=== PATIENT | female | born 1940 | race Caucasian/White ===

== ENCOUNTER 2017-01-27 02:08 | Emergency (ER) | payer OTHER ==
[~2017-01-27] VITALS: Ht 149.9 cm; Wt 87.9 kg
[~2017-01-27 02:08] MED LIST: ADVIN25/60 INH; ALBUAER2 INH; AMLO10TA2 PO; ATV/1 PO; BENZ100C84 PO; ESTR1CRE PV; FLNIN/ NAE; IPRASOL4 INH; LATA0.5S OPB; LEVO25TA5 PO; LISI40TA PO; PRLSR20 PO; TPRSR/25 PO; ZLF/100 PO
[2017-01-27 02:17] VITALS: TEMP 36.6; Ht 149.9 cm; Wt 87.9 kg
--- NOTE | 2017-01-27 02:21 | EMERGENCY ROOM VISIT NOTE ---
History Report prepared by Jeannineibkimberly: Monroe Chaudhary Under the Supervision of: Dr. Julio Cesar Reina D.O. First contact with patient: 02:08 Chief Complaint: SYNCOPE Stated Complaint: DIZZINESS/NEAR SYNCOPAL History of Present Illness The patient is a 76 year old female who presents to the Emergency Room via EMS with complaints of high blood pressure occurring tonight. She was doing a coloring and when she got up she felt lightheaded. She checked her blood pressure and it was 170/104. She states that she has not been feeling well for the past few days but has not been checking her blood pressure excessively. She did not check her blood pressure in the past few days. She currently complains of a mild headache but otherwise denies any complaints. She denies any issues with speech, chest pain, or any other complaints. She has chronic shortness of breath due to asthma but denies any changes. Source of History: patient Onset: tonight Position: other (global) Symptom Intensity: 170/104 Quality: other (high blood pressure) Associated Symptoms: + SOB (chronic), + headache, No chest pain Review of Systems See HPI for pertinent positives and negatives. A total of ten systems were reviewed and were otherwise negative. Past Medical & Surgical Medical Problems: (1) Anxiety (2) Asthma (3) Calculus of kidney (4) Depression (5) Glaucoma (6) Hypertension (7) Hypothyroidism (8) Pancreatic mass (9) Urinary retention Surgical Problems: (1) Status post appendectomy (2) Status post cataract extraction (3) Status post partial mastectomy Family History Cancer FATHER MOTHER Diabetes mellitus Hypertension Social History Smoking Status: Never Smoker Alcohol Use: none Marital Status: Housing Status: lives alone Occupation Status: retired Current/Historical Medications Scheduled Amlodipine Besylate (Norvasc), 10 MG PO DAILY Atorvastatin (Lipitor), 20 MG PO DAILY Fluticasone Prop/Salmeterol (Advair Diskus 250/50 60 Dose), 1 PUFF INH BID Latanoprost (Xalatan 0.005% Oph Gabby), 1 DROP OPB HS Levothyroxine Sodium (Levothyroxine Sodium), 25 MCG PO DAILY Lisinopril (Prinivil), 40 MG PO DAILY Metoprolol Succinate (Metoprolol Succinate ER), 25 MG PO DAILY Omeprazole (Prilosec), 20 MG PO DAILY Sertraline HCl (Sertraline HCl), 100 MG PO DAILY Scheduled PRN Albuterol (Ventolin Hfa), 2 PUFFS INH QID PRN for Wheezing Benzonatate (Tessalon Perles), 100 MG PO TID PRN for Cough Fluticasone Propionate (Fluticasone Propionate), 1 SPRY ERIN BID PRN for ALLERGIC REACTION Ipratropium-Albuterol (Duoneb), 1 TREATMENT INH QID PRN for SOB/Wheezing Lorazepam (Ativan), 1 MG PO BID PRN for Anxiety Allergies Coded Allergies: Iodinated Diagnostic Agents (Verified Allergy, Intermediate, HIVES, ) Iodine (Verified Allergy, Unknown, Unknown, 06/10/16) Reported by PT and listed in [facility] record. Dobutamine (Verified Adverse Reaction, Severe, SHORTNESS OF BREATH, ) Wheezing Famotidine (Verified Adverse Reaction, Unknown, Diarrhea, 06/10/16) Reported by PT and listed in [facility] record. Physical Exam Vital Signs Date Time Temp Pulse Resp B/P Pulse Ox O2 Delivery O2 Flow Rate FiO2 01/27/17 03:02 93 01/27/17 02:23 98 Room Air 01/27/17 02:17 36.6 93 18 157/80 100 Room Air Physical Exam GENERAL: Awake, alert, well-appearing, in no distress HENT: Normocephalic, atraumatic. Oropharynx unremarkable. EYES: Normal conjunctiva. Sclera non-icteric. NECK: Supple. No nuchal rigidity. FROM. No JVD. RESPIRATORY: Clear to auscultation. CARDIAC: Regular rate, normal rhythm. Extremities warm and well perfused. Pulses equal. ABDOMEN: Soft, non-distended. No tenderness to palpation. No rebound or guarding. No masses. RECTAL: Deferred. MUSCULOSKELETAL: Chest examination reveals no tenderness. The back is symmetrical on inspection without obvious abnormality. There is no CVA tenderness to palpation. No joint edema. LOWER EXTREMITIES: Calves are equal size bilaterally and non-tender. No edema. No discoloration. NEURO: Normal sensorium. No sensory or motor deficits noted. PSYCHIATRIC: Anxious. SKIN: No rash or jaundice noted. Medical Decision & Procedures Laboratory Results 01/27/17 02:00 Red Blood Count 4.27, Mean Corpuscular Volume 82.9, Mean Corpuscular Hemoglobin 25.8, Mean Corpuscular Hemoglobin Concent 31.1, Mean Platelet Volume 10.9, Neutrophils (%) (Auto) 50.7, Lymphocytes (%) (Auto) 35.9, Monocytes (%) (Auto) 11.5, Eosinophils (%) (Auto) 1.4, Basophils (%) (Auto) 0.4, Neutrophils # (Auto ) 3.52, Lymphocytes # (Auto) 2.50, Monocytes # (Auto) 0.80, Eosinophils # (Auto ) 0.10, Basophils # (Auto) 0.03 01/27/17 02:00 Test 01/27/17 02:00 01/27/17 02:26 White Blood Count 6.96 K/uL (4.8-10.8) Red Blood Count 4.27 M/uL (4.2-5.4) Hemoglobin 11.0 g/dL (12.0-16.0) Hematocrit 35.4 % (37-47) Mean Corpuscular Volume 82.9 fL (80-100) Mean Corpuscular Hemoglobin 25.8 pg (25-34) Mean Corpuscular Hemoglobin Concent 31.1 g/dl (32-36) Platelet Count 247 K/uL (130-400) Mean Platelet Volume 10.9 fL (7.4-10.4) Neutrophils (%) (Auto) 50.7 % Lymphocytes (%) (Auto) 35.9 % Monocytes (%) (Auto) 11.5 % Eosinophils (%) (Auto) 1.4 % Basophils (%) (Auto) 0.4 % Neutrophils # (Auto) 3.52 K/uL (1.4-6.5) Lymphocytes # (Auto) 2.50 K/uL (1.2-3.4) Monocytes # (Auto) 0.80 K/uL (0.11-0.59) Eosinophils # (Auto) 0.10 K/uL (0-0.5) Basophils # (Auto) 0.03 K/uL (0-0.2) RDW Standard Deviation 50.8 fL (36.4-46.3) RDW Coefficient of Variation 16.7 % (11.5-14.5) Immature Granulocyte % (Auto) 0.1 % Immature Granulocyte # (Auto) 0.01 K/uL (0.00-0.02) Prothrombin Time 10.5 SECONDS (9.0-12.0) Prothromb Time International Ratio 1.0 (0.9-1.1) Activated Partial Thromboplast Time 25.9 SECONDS (21.0-31.0) Partial Thromboplastin Ratio 1.0 Anion Gap 8.0 mmol/L (3-11) Est Creatinine Clear Calc Drug Dose 35.5 ml/min Estimated GFR () 46.2 Estimated GFR (Non- 39.8 BUN/Creatinine Ratio 27.7 (10-20) Calcium Level 9.1 mg/dl (8.5-10.1) Total Bilirubin 0.3 mg/dl (0.2-1) Direct Bilirubin < 0.1 mg/dl (0-0.2) Aspartate Amino Transf (AST/SGOT) 17 U/L (15-37) Alanine Aminotransferase (ALT/SGPT) 21 U/L (12-78) Alkaline Phosphatase 81 U/L (45-117) Total Protein 8.4 gm/dl (6.4-8.2) Albumin 4.0 gm/dl (3.4-5.0) Bedside Troponin I 0.000 ng/ml (0-0.045) Laboratory results reviewed by me ECG Indication: other (High blood pressure) Rate (beats per minute): 98 Rhythm: normal sinus Findings: left axis deviation, other (Nonspecific ST T wave abnormalities) ED Course 0208: The patient was evaluated in room A02. A complete history and physical exam was performed. 0257: I reevaluated the patient is doing well. She is nonfocal neurologically. Her blood pressure is 136/77. Discussed results and discharge instructions: She verbalized understanding and agreement. The patient is ready for discharge. Medical Decision Differential diagnosis includes but is not limited to near syncope, dizziness, metabolic derangement, cardiac dysrhythmia, anxiety, hypertensive episode. Resting in no distress on repeat examination and nonfocal neurologically. Patient's blood pressure 136/77. I discussed the workup with the patient and she will follow-up for further evaluation Impression Primary Impression: Hypertension Scribe Attestation The scribe's documentation has been prepared under my direction and personally reviewed by me in its entirety. I confirm that the note above accurately reflects all work, treatment, procedures, and medical decision making performed by me. Departure Information Dispostion Home / Self-Care Referrals Maria Luisa Preciado M.D. (PCP) Forms HOME CARE DOCUMENTATION FORM, IMPORTANT VISIT INFORMATION Patient Instructions ED HTN Established, [facility]
[2017-01-27 02:23] VITALS: O2SAT 98
[2017-01-27] MEDS ORDERED: ATOR-22 PO (02:32)
[2017-01-27 02:35] LABS: BASO % 0.4 %; BASO ABS # 0.03 K/uL (0-0.2); COMPLETE YES; EOS % 1.4 %; HEMATOCRIT 35.4 % (37-47); IG% 0.1 %; LYMPH % 35.9 %; MEAN CELL VOLUME 82.9 fL (80-100); MEAN CORPUSCULAR HEMOGLOBIN 25.8 pg (25-34); MEAN CORPUSCULAR HGB CONC 31.1 g/dl (32-36); MEAN PLATELET VOLUME 10.9 fL (7.4-10.4); MONO % 11.5 %; NEUT % 50.7 %; PLATELET COUNT 247 K/uL (130-400); RED BLOOD COUNT 4.27 M/uL (4.2-5.4); WHITE BLOOD COUNT 6.96 K/uL (4.8-10.8)
[2017-01-27 02:46] LABS: PROTHROMBIN TIME (PATIENT) 10.5 SECONDS (9.0-12.0)
[2017-01-27 02:49] LABS: ALT/SGPT 21 U/L (12-78); AST/SGOT 17 U/L (15-37); BLOOD UREA NITROGEN 36 mg/dl (7-18); BUN/CREATININE RATIO 27.7 (10-20); CALCIUM 9.1 mg/dl (8.5-10.1); CARBON DIOXIDE 26 mmol/L (21-32); CHLORIDE 110 mmol/L (98-107); GLUCOSE 91 mg/dl (70-99); POTASSIUM 4.4 mmol/L (3.5-5.1); SODIUM 144 mmol/L (136-145)
[2017-01-27 02:52] LABS: ALKALINE PHOSPHATASE 81 U/L (45-117)
[2017-01-27 03:15] VITALS: BP 125/94; PULSE 100; O2SAT 97
== END 2017-01-27 04:05 | disposition home or self-care (01) ==
LOC: C.EDA 02:08 → EDBD 02:08 → C.EDA 04:05
DX: I10 Essential (primary) hypertension (principal); F41.9 Anxiety disorder, unspecified; E03.9 Hypothyroidism, unspecified; J45.909 Unspecified asthma, uncomplicated; F32.9 Major depressive disorder, single episode, unspecified; K86.9 Disease of pancreas, unspecified; Z98.890 Other specified postprocedural states; Z90.10 Acquired absence of unspecified breast and nipple; Z98.49 Cataract extraction status, unspecified eye; Z79.899 Other long term (current) drug therapy; Z88.8 Allergy status to other drugs, medicaments and biological substances; Z91.041 Radiographic dye allergy status; Z80.9 Family history of malignant neoplasm, unspecified; Z83.3 Family history of diabetes mellitus; Z82.49 Family history of ischemic heart disease and other diseases of the circulatory system

== ENCOUNTER → 2018-04-04 | Outpatient (CLI) | payer OTHER ==
[~2018-04-04] MED LIST changes: +ATOR-22 PO; -ESTR1CRE PV; +FERR1TAB13 PO; -FLNIN/ NAE; +IPRA-64 INH; -IPRASOL4 INH; +MONT1TAB3 PO; +SALI0.657 NAE
--- NOTE | 2018-04-04 09:38 | DIAGNOSTIC IMAGING REPORT ---
BARIUM [facility]EMA AIR ROUTINE CLINICAL HISTORY: IRON DEFICIENCY AND ANEMIA COMPARISON STUDY: Abdomen and pelvis CT 03/09/2018. FLUOROSCOPY TIME: 2.7 minutes. 22 images submitted. FINDINGS: A balloon tip catheter was placed in the rectum under fluoroscopic guidance and the balloon was gently inflated. This is followed by gravity drainage of contrast into the rectum. Multiple fluoroscopic spot and overhead images were obtained. Onsite Health Coach images demonstrate advanced degenerative changes within the lumbar spine and levoscoliosis. Prior cholecystectomy. No suspicious filling defects identified within the colon. Multiple colonic diverticula. Midline hernia containing a short segment of the mid transverse colon. This remains unchanged. This results in incomplete filling and underdistention of the herniated mid transverse colon. No evidence for bowel obstruction. IMPRESSION: 1. No change in the midline hernia containing a short segment of the mid transverse colon. No evidence for bowel obstruction. 2. Colonic diverticulosis. 3. No suspicious filling defects seen within the colon. Electronically signed by: Joseph Bernal M.D. 04/04/2018 9:36 AM Dictated Date/Time: 04/04/2018 9:32 AM
== END | disposition home or self-care (01) ==
LOC: C.RAD 08:20
PROVIDERS: ATTEND Student in an Organized Health Care Education/Training Program
DX: D50.9 Iron deficiency anemia, unspecified (principal); K57.90 Diverticulosis of intestine, part unspecified, without perforation or abscess without bleeding

== ENCOUNTER → 2018-04-25 | Day surgery (SDC) | payer OTHER ==
[2018-04-19 11:55] VITALS: Ht 149.9 cm; Wt 84.5 kg
[~2018-04-25] VITALS: Ht 149.9 cm; Wt 84.5 kg
[~2018-04-25] MED LIST changes: -ALBUAER2 INH; +ATROPINE SULFATE 0.1 MG/ML 5ML SYR IV PRN; +EpHEDrine SULFATE INJ 50 MG/ML AMP IV PRN; +LIDOCAINE HCL 2% 2 ML VIAL (20MG/ML) ONE; +MIDAZOLAM HCL 1 MG/ML 2ML VIAL ONE; +ONDANSETRON INJ 2 MG/ML 2 ML VIAL ONE; +PROPOFOL IV EMULSION 10 MG/ML 20 ML VIAL ONE; +SODIUM CHLORIDE 0.9% 500ML 500 ML IV ONE; +VNTHFA/IN INH
--- NOTE | 2018-04-25 09:18 | Endo History and Physical ---
History & Physical Date of Service: Apr 25, 2018. Chief Complaint: Referring Physician: History of Present Illness Colonoscopy for BATSHEVA Past Medical History Asthma, Anxiety, Hypertension Past Surgical History Hx Cardiac Surgery: No Hx Internal Defibrillator: No Hx Pacemaker: No Hx Abdominal Surgery: Yes (APPY, SOO, WILLI BSO) Hx of Implantable Prosthesis: No Hx Post-Op Nausea and Vomiting: No Hx Cancer Surgery: No Hx Thoracic Surgery: No Hx Orthopedic: No Hx Urinary Tract Surgery: No Family History None Social History Smoking Status: Never Smoker Hx Substance Use: No Hx Alcohol Use: No Allergies Coded Allergies: Iodinated Diagnostic Agents (Verified Allergy, Intermediate, HIVES, ) Iodine (Verified Allergy, Unknown, DIARRHEA, 04/25/18) Reported by PT and listed in [facility] record. Dobutamine (Verified Adverse Reaction, Severe, SHORTNESS OF BREATH, ) Wheezing Famotidine (Verified Adverse Reaction, Unknown, Diarrhea, 04/25/18) Reported by PT and listed in [facility] record. Current Medications Reported Home Medications Medications Dose Route/Sig Max Daily Dose Days Date Category Dose Instructions Kp Ferrous Sulfate (Ferrous Sulfate) 325 Mg Tab 1 Tab PO BID 04/19/18 Reported Ventolin Hfa (Albuterol) 200 Puffs/67264 Mcg Aers 2-4 Puffs INH Q6H PRN 04/19/18 Reported Singulair (Montelukast Sodium) 10 Mg Tab 10 Mg PO QAM 03/07/18 Reported [place] (Saline) 0.65 % Spr 1 [place] ERIN BID 03/07/18 Reported Lipitor (Atorvastatin Calcium) 20 Mg Tab 20 Mg PO QAM 01/27/17 Reported Tessalon Perles (Benzonatate) 100 Mg Cap 100 Mg PO TID PRN 04/20/16 Reported Sertraline HCl 100 Mg Tab 100 Mg PO QAM 04/20/16 Reported Metoprolol Succinate ER (Metoprolol Succinate) 25 Mg Tabcr 25 Mg PO QAM 04/20/16 Reported Norvasc (Amlodipine Besylate) 10 Mg Tab 10 Mg PO QAM 04/20/16 Reported Prinivil (Lisinopril) 40 Mg Tab 40 Mg PO QAM 01/16/15 Reported Xalatan 0.005% Oph Gabby (Latanoprost) 0.005 % Gbaby 1 Drop OPB HS 09/04/14 Reported Duoneb (Ipratropium-Albuterol) 3 Ml Nebu 1 Treatment INH QID PRN 09/04/14 Reported Levothyroxine Sodium 25 Mcg Tab 25 Mcg PO QAM 09/04/14 Reported Advair Diskus 250/50 60 Dose (Fluticasone Prop/Salmeterol) 1 Ea Aerp 1 Puff INH BID 09/04/14 Reported Prilosec (Omeprazole) 20 Mg Capcr 20 Mg PO QAM 09/04/14 Reported TAKE THIS MEDICATION ONCE DAILY ONE HOUR BEFORE FIRST MEAL OF THE DAY. Ativan (Lorazepam) 1 Mg Tab 1 Mg PO BID PRN 09/04/14 Reported Vital Signs Weight (Kilograms): 84.55 Height (Feet): 4 Height (Inches): 11 Physical Exam General Appearance: no apparent distress Respiratory/Chest: Auscultation: breath sounds normal Cardiovascular: Heart Auscultation: RRR Abdomen: Inspection & Palpation: soft, non-distended Assessment and Plan Stable for colonoscopy
--- NOTE | 2018-04-25 10:42 | GI REPORT ---
Patient Name: Hina Chavira Procedure Date: 04/25/2018 9:30 AM Date of : 1940 Admit Type: Outpatient Age: 77 Gender: Female Attending MD: Fermin Doshi MD Procedure: Colonoscopy Providers: Fermin Doshi MD Referring MD: Maria Luisa Preciado Indications: Iron deficiency anemia Medicines: Monitored Anesthesia Care Complications: No immediate complications. Estimated Blood Loss: Estimated blood loss: none. Procedure: Pre-Anesthesia Assessment: - Prior to the procedure, a History and Physical was performed, and patient medications and allergies were reviewed. The patient is competent. The risks and benefits of the procedure and the sedation options and risks were discussed with the patient. All questions were answered and informed consent was obtained. Patient identification and proposed procedure were verified by the physician and the nurse in the procedure room. Mental Status Examination: alert and oriented. Airway Examination: normal oropharyngeal airway and neck mobility. Respiratory Examination: clear to auscultation. CV Examination: normal. ASA Grade Assessment: III - A patient with severe systemic disease. After reviewing the risks and benefits, the patient was deemed in satisfactory condition to undergo the procedure. The anesthesia plan was to use monitored anesthesia care (MAC). Immediately prior to administration of medications, the patient was re-assessed for adequacy to receive sedatives. The heart rate, respiratory rate, oxygen saturations, blood pressure, adequacy of pulmonary ventilation, and response to care were monitored throughout the procedure. The physical status of the patient was re-assessed after the procedure. After I obtained informed consent, the scope was passed under direct vision. Throughout the procedure, the patient's blood pressure, pulse, and oxygen saturations were monitored continuously. The scope was introduced through the anus and advanced to the terminal ileum. The scope was introduced through the anus and advanced to the terminal ileum. The colonoscopy was technically difficult and complex due to significant looping. Successful completion of the procedure was aided by withdrawing the scope and replacing with the adult endoscope and using an external abdominal binder. The patient tolerated the procedure well. The quality of the bowel preparation was good. The terminal ileum, ileocecal valve, appendiceal orifice, and rectum were photographed. Findings: The perianal and digital rectal examinations were normal. The terminal ileum appeared normal. A 6 mm polyp was found in the ascending colon. The polyp was sessile. The polyp was removed with a cold snare. Resection and retrieval were complete. Verification of patient identification for the specimen was done by the physician and nurse using the patient's name and date. Multiple small and large-mouthed diverticula were found in the entire colon. Non-bleeding internal hemorrhoids were found during retroflexion. The hemorrhoids were small. Impression: - The examined portion of the ileum was normal. - One 6 mm polyp in the ascending colon, removed with a cold snare. Resected and retrieved. - Diverticulosis in the entire examined colon. - Non-bleeding internal hemorrhoids. Recommendation: - Discharge patient to home. - Await pathology results. - Repeat colonoscopy for surveillance based on pathology results. - Return to referring physician. Fermin Doshi MD 04/25/2018 10:42:18 AM This report has been signed electronically. Note Initiated On: 04/25/2018 9:30 AM Number of Addenda: 0 I attest to the content of the Intraoperative Record and orders documented therein, exceptions below {[id number]}
--- NOTE | 2018-04-25 10:43 | Discharge Instructions ---
Endoscopy Patient Instructions Date / Procedure(s) Performed Apr 25, 2018. Colonoscopy Allergy Information Coded Allergies: Iodinated Diagnostic Agents (Verified Allergy, Intermediate, HIVES, ) Iodine (Verified Allergy, Unknown, DIARRHEA, 04/25/18) Reported by PT and listed in [facility] record. Dobutamine (Verified Adverse Reaction, Severe, SHORTNESS OF BREATH, ) Wheezing Famotidine (Verified Adverse Reaction, Unknown, Diarrhea, 04/25/18) Reported by PT and listed in [facility] record. Discharge Date / Findings Apr 25, 2018. Normal TI Polyp in ascending colon Diverticulosis Provider Instructions Activity Restrictions - No exercising or heavy lifting for 24 hours. - Do not drink alcohol the day of the procedure. - Do not drive a car or operate machinery until the day after the procedure. - Do not make any important decisions or sign important papers in 24 hours after the procedure. Following Day: - Return to full activity which may include returning to work/school. Diet Start your diet with liquids and light foods (jello, soup, juice, toast). Then eat your usual diet if not nauseated. Treatment For Common After Affects For mild abdominal pain, bloating, or excessive gas: - Rest - Eat lightly - Lie on right side Follow-Up Information Follow-up with Dr. Preciado as scheduled Anesthesia Information What You Should Know You have had a procedure that required some medicine to reduce anxiety and discomfort. This treatment is called moderate sedation. After receiving the treatment, you may be sleepy, but you will be able to breathe on your own. The effects of the treatment may last for several hours. Follow these instructions along with Activity/Diet recommendations noted above: * Do NOT do anything where dizziness or clumsiness would be dangerous. * Rest quietly at home today, then you can be up and about tomorrow. * Have a responsible person stay with you the rest of today. * You may have had an I.V. today. If so, you may take the dressing off later today. Recommendations Call your doctor if: * Trouble breathing * Continuous vomiting for more than 24 hours * Temperature above 101 degrees * Severe abdominal pain or bloating * Pain not relieved by pain medicine ordered * There is increased drainage or redness from any incision * A large amount of rectal bleeding greater than 2-3 tablespoons. (If you had a polyp/s removed or have hemorrhoids, a small amount of blood - from the rectum is to be expected.) * You have any unanswered questions or concerns. IN THE EVENT OF A SERIOUS EMERGENCY, GO TO THE NEAREST EMERGENCY ROOM Your discharge instructions were prepared by provider Fermin Doshi. Patient Instructions Signature Page Hina Chavira Patient (or Guardian) Signature/Date: I have read and understand the instructions given to me by my caregivers. Caregiver/RN/Doctor Signature/Date: The above-named patient and/or guardian has received patient instructions on this date. + Original Patient Signature Page (only) stays with chart. Please make copy for patient.
--- NOTE | 2018-04-25 11:08 | Anesthesiology Progress Note ---
Anesthesia Post Op Note Date & Time Apr 25, 2018 at 11:08 Vital Signs Pain Intensity: 0 Vital Signs Past 12 Hours Date Time Temp Pulse Resp B/P (MAP) Pulse Ox O2 Delivery O2 Flow Rate FiO2 04/25/18 11:03 90 18 111/80 (90) 97 Room Air 04/25/18 10:48 89 16 108/59 (75) 96 Room Air 04/25/18 09:24 36.8 109 18 157/77 (103) 97 Room Air Notes Mental Status: alert / awake / arousable, participated in evaluation Pt Amnestic to Procedure: Yes Nausea / Vomiting: adequately controlled Pain: adequately controlled Airway Patency, RR, SpO2: stable & adequate BP & HR: stable & adequate Hydration State: stable & adequate Anesthetic Complications: no major complications apparent
[2018-04-25 11:16] VITALS: BP 131/79; PULSE 91; O2SAT 96
== END | disposition home or self-care (01) ==
LOC: C.GI 08:50
PROVIDERS: ATTEND Student in an Organized Health Care Education/Training Program
DX: D50.9 Iron deficiency anemia, unspecified (principal); D12.2 Benign neoplasm of ascending colon; K64.8 Other hemorrhoids; K57.30 Diverticulosis of large intestine without perforation or abscess without bleeding; I10 Essential (primary) hypertension; J45.909 Unspecified asthma, uncomplicated; E66.9 Obesity, unspecified; Z91.041 Radiographic dye allergy status; Z90.49 Acquired absence of other specified parts of digestive tract; Z90.710 Acquired absence of both cervix and uterus; Z90.722 Acquired absence of ovaries, bilateral; Z90.79 Acquired absence of other genital organ(s)

== ENCOUNTER 2021-08-04 18:17 | Inpatient (IN) ==
[2021-08-04] MEDS ORDERED: ALBUT/IPRATROP 3MG/0.5MG NEB 3 ML VIAL NEB STA (18:28)
--- NOTE | 2021-08-04 18:32 | Emergency Department Note ---
Impression & Plan Hypomagnesemia, Breathlessness ED Provider Note Provider: Tae Hart MD DATE OF SERVICE: 08/04/2021 CHIEF COMPLAINT: Shortness of breath HISTORY OF PRESENT ILLNESS: Patient is a 80-year-old female history of asthma and hyperlipidemia presented today from home via ambulance with report of onset of shortness of breath. Patient states he was very self and think she was vaccinated for Covid. No fevers reported but some cough and shortness of breath. She states this has improved since EMS was called She denies any chest pain now or earlier. Denies any nausea vomiting or abdominal pain. She denies any falls. Denies any leg swelling. Patient states he is on some nebulizers at home which she has been using. EMS report that family were concerned about her with her shortness of breath and talked with the patient's primary doctor who said she should come to the ER for evaluation and possible placement. Patient with some mild productive cough reported. Patient niece who lives nearby and helps with the patient states that they found some pills in the floor and unsure if the patient's been taking her medicines adequately. She states they have some concerns about the patient's ability to care for self at home and states the patient may have some memory issues. REVIEW OF SYSTEMS: A total of 10 review of systems was obtained and negative except as stated above in the HPI. PAST MEDICAL HISTORY: As noted above MEDICATIONS: Reviewed home medications, family of some concerns about how the patient's been taking the medications. SOCIAL HISTORY: Lives by her self, non-smoker PHYSICAL EXAM: GENERAL: alert and oriented in no acute distress on stretcher Head: normocephalic and atraumatic EYES: No injection, discharge or icterus. NECK: Trachea midline. Supple. ENT: Mucous membranes pink and moist. LUNGS: Airway patent. No retractions. Breath sounds clear with some expiratory wheeze HEART: Regular rate and rhythm. No chest wall tenderness ABDOMEN: Soft and non-tender, without guarding or rebound. SKIN: Acyanotic, warm, dry, without rashes EXTREMITIES: Without swelling, tenderness or deformity NEUROLOGICAL: No focal deficits. No aphasia. No facial droop or slurred speech. Normal strength and tone in the extremities. Sensation to gross touch normal. Am bulatory. EK bpm normal sinus rhythm left axis. Incomplete bundle branch block. No PVC or PAC. No acute ST segment elevation or depression. Nonspecific T wave changes are noted. CONTINUOUS CARDIAC MONITORING: was ordered and showed a heart rate of 70s-90s bpm in normal sinus rhythm Patient's laboratory studies and imaging reviewed. Differential includes Reactive airway disease, pneumonia, pneumothorax, COPD, CHF, infections, cardiac ischemia, pulmonary embolism, musculoskeletal, gastroi ntestinal, as well as other pathologies. IMPRESSION/MEDICAL DECISION MAKING: Patient without acute neurological deficit at this time. EKG and blood work obtained. Patient given a DuoNeb here initially with some wheeze but not classic for COPD exacerbation and no history of smoking. Chest x-ray questions little bit of pulmonary vascular congestion with the patient is not hypoxic here and does not appear significantly fluid overloaded on clinical exam of the lower extremities. Mild leukocytosis is noted. No significant renal dysfunction or troponin elevation noted. Lower suspicion for PE given the patient's lack of hypoxia or significant tachycardia. Mild hypomagnesemia IV magnesium supp lementation given. Urinalysis not impressive for infection. Patient's family have concerns with the patient Jim for care self at home at this point. They report the patient's had some memory issues. I doubt an acute stroke at this time as a states has been more insidious. There are questions of the patient's been taking home medicines appropriately including her nebulizers. They do state the patient does appear more comfortable with her breathing at this point. Discussed with the patient and family at bedside. Given their concerns for the patient safety at home. Discussed with them options. Given the safety concerns for return to live by herself at this time we will pursue observation here with the plan for rehab stay. Hospitalist contacted. DIAGNOSIS: Shortness of breath, hypomagnesemia DISPOSITION: Hospitalist will evaluate Patient was agreeable with this plan. Past Med/Surg History Medical History (Updated 08/05/21 @ 00:07 by Tae Hart M.D.) Anxiety Asthma COPD exacerbation Depression Hypertension Hypertension Hypertensive urgency Hypothyroidism Pancreatic mass "noted on CT 01/16/15" Tachycardia Surgical History Status post appendectomy Status post cataract extraction Status post partial mastectomy "left breast, benign disease" Social History Smoking Status: Never smoker Preferred Language: Thai Feels Safe at Home: Yes Allergies Allergies Allergy/AdvReac Type Severity Reaction Status Date / Time Iodinated Contrast Media Allergy Intermediate HIVES Verified 08/04/21 19:31 iodine Allergy Unknown DIARRHEA Verified 08/04/21 19:31 dobutamine AdvReac Severe SHORTNESS Verified 08/04/21 19:31 OF BREATH famotidine AdvReac Unknown Diarrhea Verified 08/04/21 19:31 Home Meds Home Medications Medication Instructions Recorded Confirmed acetaminophen 650 mg 650 mg PO Q8H PRN 08/04/21 08/04/21 tablet,extended release albuterol sulfate 90 mcg/actuation 2 puff INHALATION Q4H 08/04/21 08/04/21 aerosol inhaler amlodipine 10 mg tablet 10 mg PO DAILY 08/04/21 08/04/21 aspirin 81 mg chewable tablet 81 mg PO DAILY 08/04/21 08/04/21 atorvastatin 20 mg tablet 20 mg PO DAILY 08/04/21 08/04/21 diclofenac sodium 1 % topical gel 4 g TOPICAL QID 08/04/21 08/04/21 docusate sodium 100 mg capsule 100 mg PO DAILY 08/04/21 08/04/21 ferrous sulfate 325 mg (65 mg 325 mg PO DAILY 08/04/21 08/04/21 iron) tablet folic acid 1 mg tablet 1 mg PO DAILY 08/04/21 08/04/21 ipratropium 0.5 mg-albuterol 3 mg 3 ml INHALATION Q4H PRN 08/04/21 08/04/21 (2.5 mg base)/3 mL nebulization soln latanoprost 0.005 % eye drops 1 drp OPHTHALMIC (EYE) HS 08/04/21 08/04/21 levothyroxine 25 mcg tablet 25 mcg PO DAILY 08/04/21 08/04/21 lisinopril 40 mg tablet 40 mg PO DAILY 08/04/21 08/04/21 loratadine 10 mg tablet 10 mg PO DAILY PRN 08/04/21 08/04/21 lorazepam 1 mg tablet 1 mg PO BID PRN 08/04/21 08/04/21 meloxicam 7.5 mg tablet 7.5 mg PO DAILY PRN 08/04/21 08/04/21 metoprolol succinate 50 mg 50 mg PO DAILY 08/04/21 08/04/21 tablet,extended release 24 hr montelukast 10 mg tablet 10 mg PO DAILY 08/04/21 08/04/21 omeprazole 20 mg capsule,delayed 20 mg PO DAILY 08/04/21 08/04/21 release polyethylene glycol 3350 17 gram 17 g PO DAILY PRN 08/04/21 08/04/21 oral powder packet sertraline 100 mg tablet 100 mg PO DAILY 08/04/21 08/04/21 Results & Data (ED) Vital Signs Vital Signs - 24 hr 08/04/21 18:30 08/04/21 18:53 08/04/21 19:20 Temperature 36.9 C Temperature Source Oral Pulse Rate 92 H Pulse Rate [Right] 92 H Pulse Rhythm [Right] Pulse Strength [Right] Respiratory Rate 20 18 Respiratory Effort / Characteristics Non-Labored Non-Labored Respiratory Depth Normal Respiratory Pattern Regular Blood Pressure 160/89 H Blood Pressure [Right Arm] Blood Pressure Mean 112 Blood Pressure Mean [Right Arm] Blood Pressure Position Sitting Blood Pressure Position [Right Arm] Pulse Oximetry 95 96 97 Oxygen Delivery Method Room Air Room Air Room Air Oxygen Flow Rate 0 Sepsis Recent Fever Within 48 Hours No Sepsis New/Unexplained Change in Mental Status N/A Sepsis Action Taken by Nursing No Action Required 08/04/21 19:34 08/04/21 21:00 08/04/21 23:54 Temperature Temperature Source Pulse Rate Pulse Rate [Right] 94 H 93 H 83 Pulse Rhythm [Right] Regular Regular Pulse Strength [Right] Normal Respiratory Rate 24 20 18 Respiratory Effort / Characteristics Non-Labored Non-Labored Respiratory Depth Normal Normal Respiratory Pattern Regular Blood Pressure Blood Pressure [Right Arm] 160/89 H 173/95 H 148/89 H Blood Pressure Mean Blood Pressure Mean [Right Arm] 112 121 108 Blood Pressure Position Blood Pressure Position [Right Arm] Sitting Pulse Oximetry 95 95 95 Oxygen Delivery Method Room Air Room Air Room Air Oxygen Flow Rate Sepsis Recent Fever Within 48 Hours Sepsis New/Unexplained Change in Mental Status Sepsis Action Taken by Nursing 08/05/21 00:19 Temperature Temperature Source Pulse Rate Pulse Rate [Right] 89 Pulse Rhythm [Right] Regular Pulse Strength [Right] Respiratory Rate 16 Respiratory Effort / Characteristics Respiratory Depth Respiratory Pattern Blood Pressure Blood Pressure [Right Arm] 148/89 H Blood Pressure Mean Blood Pressure Mean [Right Arm] 108 Blood Pressure Position Blood Pressure Position [Right Arm] Pulse Oximetry 95 Oxygen Delivery Method Room Air Oxygen Flow Rate Sepsis Recent Fever Within 48 Hours Sepsis New/Unexplained Change in Mental Status Sepsis Action Taken by Nursing Laboratory Data Result diagrams: 08/04/21 18:49 08/04/21 18:49 Lab Results 08/04/21 08/04/21 08/04/21 Range/Units 18:44 18:49 18:49 WBC 12.97 H (4.8-10.8) K/uL RBC 4.72 (4.2-5.4) M/uL Hgb 14.5 (12.0-16.0) g/dL Hct 43.8 (37-47) % MCV 92.8 (80-100) fL MCH 30.7 (25-34) pg MCHC 33.1 (32-36) g/dL RDW Std Deviation 47.5 H (36.4-46.3) fL RDW Coeff of Gui 13.9 (11.5-14.5) % Plt Count 213 (130-400) K/uL MPV 11.1 H (7.4-10.4) fL Immature Gran % (Auto) 0.2 % Neut % (Auto) 80.6 % Lymph % (Auto) 10.5 % [place] % (Auto) 7.5 % Eos % (Auto) 1.0 % Baso % (Auto) 0.2 % Neut # (Auto) 10.45 H (1.4-6.5) K/uL Lymph # (Auto) 1.36 (1.2-3.4) K/uL [place] # (Auto) 0.97 H (0.11-0.59) K/uL Eos # (Auto) 0.13 (0-0.5) K/uL Baso # (Auto) 0.03 (0-0.2) K/uL Immature Gran # (Auto) 0.03 H (0.00-0.02) K/uL Sodium 142 (136-145) mmol/L Potassium 3.6 (3.5-5.1) mmol/L Chloride 110 H (98-107) mmol/L Carbon Dioxide 23 (21-32) mmol/L Anion Gap 9.0 (3-11) BUN 29 H (7-18) mg/dl Creatinine 0.84 (0.6-1.2) mg/dl Est Cr Clr Drug Dosing 51.5 ml/min Est GFR ( Amer) 76.1 ml/min Est GFR (Non-Af Amer) 65.6 ml/min BUN/Creatinine Ratio 34.6 H (10-20) Glucose 140 H (70-99) mg/dl Calcium 9.4 (8.5-10.1) mg/dl Magnesium 1.7 L (1.8-2.4) mg/dl Total Bilirubin 0.4 (0.2-1) mg/dl AST 13 L (15-37) U/L ALT 26 (12-78) U/L Alkaline Phosphatase 97 (45-117) U/L Troponin I < 0.015 (0-0.045) ng/ml NT-Pro-B Natriuret Pep 200 (0-1800) pg/ml Total Protein 8.3 H (6.4-8.2) gm/dl Albumin 3.7 (3.4-5.0) gm/dl Globulin 4.6 H (2.5-4.0) gm/dl Albumin/Globulin Ratio 0.8 L (0.9-2) Urine Color Urine Appearance (Clear) Urine pH (4.5-7.5) Ur Specific [place] (1.000-1.030) Urine Protein (Negative) Urine Glucose (UA) (Negative) Urine Ketones (Negative) Urine Blood (Negative) Urine Nitrite (Negative) Urine Bilirubin (Negative) Urine Urobilinogen (Negative) Ur Leukocyte Esterase (Negative) Urine WBC (Auto) (0-5) /hpf Urine RBC (Auto) (0-4) /hpf U Hyaline Cast (Auto) (0-5) /lpf U Epithel Cells (Auto) (0-5) /lpf Urine Bacteria (Auto) (Negative) Ur Renal Epithelial Cell SARS-CoV-2 (PCR) NEGATIVE (Negative) 08/04/21 Range/Units 20:20 WBC (4.8-10.8) K/uL RBC (4.2-5.4) M/uL Hgb (12.0-16.0) g/dL Hct (37-47) % MCV (80-100) fL MCH (25-34) pg MCHC (32-36) g/dL RDW Std Deviation (36.4-46.3) fL RDW Coeff of Gui (11.5-14.5) % Plt Count (130-400) K/uL MPV (7.4-10.4) fL Immature Gran % (Auto) % Neut % (Auto) % Lymph % (Auto) % [place] % (Auto) % Eos % (Auto) % Baso % (Auto) % Neut # (Auto) (1.4-6.5) K/uL Lymph # (Auto) (1.2-3.4) K/uL [place] # (Auto) (0.11-0.59) K/uL Eos # (Auto) (0-0.5) K/uL Baso # (Auto) (0-0.2) K/uL Immature Gran # (Auto) (0.00-0.02) K/uL Sodium (136-145) mmol/L Potassium (3.5-5.1) mmol/L Chloride (98-107) mmol/L Carbon Dioxide (21-32) mmol/L Anion Gap (3-11) BUN (7-18) mg/dl Creatinine (0.6-1.2) mg/dl Est Cr Clr Drug Dosing ml/min Est GFR ( Amer) ml/min Est GFR (Non-Af Amer) ml/min BUN/Creatinine Ratio (10-20) Glucose (70-99) mg/dl Calcium (8.5-10.1) mg/dl Magnesium (1.8-2.4) mg/dl Total Bilirubin (0.2-1) mg/dl AST (15-37) U/L ALT (12-78) U/L Alkaline Phosphatase (45-117) U/L Troponin I (0-0.045) ng/ml NT-Pro-B Natriuret Pep (0-1800) pg/ml Total Protein (6.4-8.2) gm/dl Albumin (3.4-5.0) gm/dl Globulin (2.5-4.0) gm/dl Albumin/Globulin Ratio (0.9-2) Urine Color Yellow Urine Appearance Clear (Clear) Urine pH 5.5 (4.5-7.5) Ur Specific [place] 1.023 (1.000-1.030) Urine Protein 3+ H (Negative) Urine Glucose (UA) Trace H (Negative) Urine Ketones Negative (Negative) Urine Blood Trace H (Negative) Urine Nitrite Negative (Negative) Urine Bilirubin Negative (Negative) Urine Urobilinogen Negative (Negative) Ur Leukocyte Esterase Negative (Negative) Urine WBC (Auto) 5-10 H (0-5) /hpf Urine RBC (Auto) 0-4 (0-4) /hpf U Hyaline Cast (Auto) 1-5 (0-5) /lpf U Epithel Cells (Auto) >30 H (0-5) /lpf Urine Bacteria (Auto) Negative (Negative) Ur Renal Epithelial Cell Not Reportable SARS-CoV-2 (PCR) (Negative) Administered Medications Discontinued Medications Acetaminophen (Acetaminophen 325 Mg Tab) Confirm Administered Dose 325 mg .ROUTE .[employer]MED ONE Stop: 08/05/21 00:00 Last Admin: 08/05/21 00:17 Dose: 325 mg Documented by: [id number] Albuterol (Albut/Ipratrop 3mg/0.5mg Neb 3 Ml Vial) 3 ml NEB NOW STA Stop: 08/04/21 18:29 Last Admin: 08/04/21 19:09 Dose: 3 ml Documented by: [id number] Magnesium Sulfate/Dextrose (Magnesium Sulfate / D5w) 1 gm in 100 mls @ 100 mls/hr IV NOW STA Stop: 08/04/21 20:24 Last Infusion: 08/04/21 20:47 Dose: 0 mls/hr Documented by: [id number] Admin: 08/04/21 19:37 Dose: 100 mls/hr Documented by: [id number] Imaging Data Radiologist's Impression: Chest X-Ray 08/04/21 18:28 XR chest 1V portable HISTORY: 80 years-old Female Dyspnea acute shortness of breath COMPARISON: Chest radiograph 06/10/2016 TECHNIQUE: Portable AP view of the chest FINDINGS: The cardiac silhouette is mildly enlarged. Mild right hemidiaphragmatic elevation. Pulmonary vascular congestion with mild interstitial coarsening. No pneumothorax or large pleural effusion. Degenerative changes of the shoulders and spine. IMPRESSION: Cardiomegaly with pulmonary vascular congestion. ACT 112: Negative or not required by law. The above report was generated using voice recognition software. It may contain grammatical, syntax or spelling errors. Electronically signed by: Jose Pink M.D. 08/04/2021 7:14 PM Discharge Plan Visit Data Chief Complaint: Shortness of Breath/Dyspnea Stated Complaint: SOB ED Provider: Tae Hart Discharge Problem: Hypomagnesemia, Breathlessness Patient Disposition: Admitted As Inpatient Discharge Instructions Interventions: ED Discharge Assessment Last Done: 08/04/21 23:42 Forms Stand Alone Forms: My [facility] Prescriptions Prescriptions: No Action latanoprost 0.005 % Drops 1 drp OPHTHALMIC (EYE) HS RF: 0 atorvastatin 20 mg tablet 20 mg PO DAILY RF: 0 ipratropium-albuterol 0.5 mg-3 mg(2.5 mg base)/3 mL solution for nebulization 3 ml INHALATION Q4H PRN (Reason: Shortness Of Breath) RF: 0 polyethylene glycol 3350 17 gram Powder In Packet 17 g PO DAILY PRN (Reason: Constipation) RF: 0 metoprolol succinate 50 mg Tablet Extended Release 24 Hr 50 mg PO DAILY RF: 0 sertraline 100 mg Tablet 100 mg PO DAILY RF: 0 levothyroxine 25 mcg Tablet 25 mcg PO DAILY RF: 0 acetaminophen [Tylenol Arthritis] 650 mg Tablet Extended Release 650 mg PO Q8H PRN (Reason: Pain) RF: 0 meloxicam 7.5 mg Tablet 7.5 mg PO DAILY PRN (Reason: Pain) RF: 0 amlodipine 10 mg tablet 10 mg PO DAILY RF: 0 ferrous sulfate 325 mg (65 mg iron) tablet 325 mg PO DAILY RF: 0 docusate sodium 100 mg Capsule 100 mg PO DAILY RF: 0 omeprazole 20 mg Capsule,Delayed Release(Dr/Ec) 20 mg PO DAILY RF: 0 aspirin 81 mg Tablet,Chewable 81 mg PO DAILY RF: 0 folic acid 1 mg Tablet 1 mg PO DAILY RF: 0 montelukast 10 mg Tablet 10 mg PO DAILY RF: 0 lorazepam 1 mg Tablet 1 mg PO BID PRN (Reason: Anxiety) RF: 0 albuterol sulfate 90 mcg/actuation Hfa Aerosol Inhaler 2 puff INHALATION Q4H RF: 0 lisinopril 40 mg Tablet 40 mg PO DAILY RF: 0 loratadine 10 mg Tablet 10 mg PO DAILY PRN (Reason: Allergy Symptoms) RF: 0 diclofenac sodium 1 % Gel 4 g TOPICAL QID RF: 0 Referrals Referrals: Maria Luisa Preciado MD [Primary Care Provider] -
[2021-08-04 18:56] LABS: Basophils # (auto) 0.03 K/uL (0-0.2); Basophils % (auto) 0.2 %; Eosinophils # (auto) 0.13 K/uL (0-0.5); Hematocrit (blood only) 43.8 % (37-47); Hemoglobin 14.5 g/dL (12.0-16.0); Immature Granulocytes # (auto) 0.03 K/uL (0.00-0.02); Immature Granulocytes % (auto) 0.2 %; Lymphocytes # (auto) 1.36 K/uL (1.2-3.4); Lymphocytes % (auto) 10.5 %; Mean Corpuscular Hemoglobin 30.7 pg (25-34); Mean Corpuscular Hgb Conc 33.1 g/dL (32-36); Mean Corpuscular Volume 92.8 fL (80-100); Mean Platelet Volume 11.1 fL (7.4-10.4); Monocytes # (auto) 0.97 K/uL (0.11-0.59); Monocytes % (auto) 7.5 %; Neutrophils # (auto) 10.45 K/uL (1.4-6.5); Neutrophils % (auto) 80.6 %; Platelet Count 213 K/uL (130-400); RDW Coefficient of Variation 13.9 % (11.5-14.5); RDW Standard Deviation 47.5 fL (36.4-46.3); Red Blood Count 4.72 M/uL (4.2-5.4); White Blood Count 12.97 K/uL (4.8-10.8)
--- NOTE | 2021-08-04 19:15 | XRay Report ---
XR chest 1V portable HISTORY: 80 years-old Female Dyspnea acute shortness of breath COMPARISON: Chest radiograph 06/10/2016 TECHNIQUE: Portable AP view of the chest FINDINGS: The cardiac silhouette is mildly enlarged. Mild right hemidiaphragmatic elevation. Pulmonary vascular congestion with mild interstitial coarsening. No pneumothorax or large pleural effusion. Degenerativ e changes of the shoulders and spine. IMPRESSION: Cardiomegaly with pulmonary vascular congestion. ACT 112: Negative or not required by law. The above report was generated using voice recognition software. It may contain grammatical, syntax o r spelling errors. Electronically signed by: Jose Pink M.D. 08/04/2021 7:14 PM
[2021-08-04 19:22] LABS: Alanine Aminotransferase 26 U/L (12-78); Albumin Level 3.7 gm/dl (3.4-5.0); Aspartate Aminotransferase 13 U/L (15-37); BUN Creatinine Ratio 34.6 (10-20); Blood Urea Nitrogen 29 mg/dl (7-18); Calcium 9.4 mg/dl (8.5-10.1); Carbon Dioxide 23 mmol/L (21-32); Chloride 110 mmol/L (98-107); Creatinine Clr Calc Pharmacy 51.5 ml/min; Est GFR (African American) 76.1 ml/min; Est GFR (Non-African American) 65.6 ml/min; Glucose 140 mg/dl (70-99); Magnesium 1.7 mg/dl (1.8-2.4); Potassium 3.6 mmol/L (3.5-5.1); Sodium 142 mmol/L (136-145)
[2021-08-04] MEDS ORDERED: MAGNESIUM SULFATE / D5W 1 GM/100 ML BAG IV STA (19:25)
[2021-08-04 19:26] LABS: Albumin Globulin Ratio 0.8 (0.9-2); Alkaline Phosphatase 97 U/L (45-117); Bilirubin,Total 0.4 mg/dl (0.2-1); Globulin 4.6 gm/dl (2.5-4.0); Total Protein 8.3 gm/dl (6.4-8.2); Troponin I < 0.015 ng/ml (0-0.045)
[2021-08-04 20:35] LABS: Appearance Urine Clear (Clear); Bacteria Urine Automated Negative (Negative); Bilirubin Urine Negative (Negative); Blood Urine Trace (Negative); Color Urine Yellow; Epithelial Cell Urine Auto >30 /lpf (0-5); Glucose Urine UA Trace (Negative); Ketones Urine Negative (Negative); Leukocyte Esterase Urine Negative (Negative); Nitrite Urine Negative (Negative); Protein Urine 3+ (Negative); RBC Urine Automated 0-4 /hpf (0-4); Specific Gravity Urine 1.023 (1.000-1.030); Urobilinogen Urine Negative (Negative); pH Urine 5.5 (4.5-7.5)
[2021-08-04 22:27] LABS: NT Pro B Type Natriuretic Pept 200 pg/ml (0-1800)
[2021-08-04] MEDS ORDERED: amLODIPine BESYLATE 5 MG TAB PO ONE (23:51)
[2021-08-04] MEDS ORDERED: ACETAMINOPHEN 325 MG TAB PO STA (23:53)
[2021-08-04] MEDS ORDERED: ACETAMINOPHEN 325 MG TAB ONE (23:59)
[2021-08-05] MEDS ORDERED: XOPENEX/ATROVENT 1.25mg/0.5MG NEB COMBO NEB STA (03:18)
[2021-08-05] MEDS ORDERED: LEVALBUTEROL 1.25MG/0.5ML NEB INH STA (03:30)
[2021-08-05] MEDS ORDERED: IPRATROPIUM BROMIDE NEB SOLN 0.02% 2.5 ML VIAL INH STA (03:30)
[2021-08-05] MEDS ORDERED: POLYETHYLENE (MIRALAX) 17 GM PACK PO PRN (04:23)
[2021-08-05] MEDS ORDERED: PROMETHAZINE HCL 12.5 MG in SODIUM CHLORIDE 0.9% 50 ML IV PRN (04:23)
[2021-08-05] MEDS ORDERED: ACETAMINOPHEN 325 MG TAB PO PRN (04:23)
[2021-08-05] MEDS ORDERED: LORATADINE 10 MG TAB PO PRN (04:23)
--- NOTE | 2021-08-05 05:26 | History & Physical Report ---
Date of Service August 05, 2021 Assessment & Plan (1) Asthma exacerbation: Plan: hypertension slightly elevated secondary to illness hx NSVT as per records history of vocal cord dysfunction hx GERD as per records anxiety/mood disorder, at baseline mild cognitive impairment, patient mentating well hypothyroidism, euthyroid as of last month's TSH Hyperglycemia rule out DM OBS Medical telemetry Steroid course, nebs RTC Pulmonary consult if without improvement Check hemoglobin A1c PT OT eval DVT prophylaxis per Lovenox subcu Full code Patient requests for her needs to be updated of progress. Ms. Chai Soto, contact #[phone]. Text document was generated using [employer] voice recognition software. It may contain grammatical or spelling errors. Kindly contact undersigned for clarification of any documentation item in question. History of Present Illness Chief Complaint: Shortness of breath Primary Care Provider: Maria Luisa Preciado MD History obtained from patient and records. Medical history is significant for hypertension, NSVT, bronchial asthma, history of vocal cord dysfunction, GERD, anxiety/mood disorder, mild cognitive impairment, hypothyroidism Last confinement May 2015 for hypertensive urgency. Few days history of dry cough, wheezing, shortness of breath without chest pain. Achy headache symptoms. No known recent COVID-19 contacts. Patient denies aspiration. No fever, no chills. Denies fluid retention. Asthma usually well controlled as per patient. Patient brought to the ER for evaluation. Received Solu-Medrol and neb treatment at the ER. MEDICAL HISTORY: As above. SURGICAL HISTORY: Appendectomy, mastectomy for benign disease, cholecystectomy, cataract surgery. FAMILY HISTORY: Heart disease, alcoholism PERSONAL AND SOCIAL HISTORY: Nonsmoker. No chronic intake of alcoholic beverages. Retired [employer] employee. Allergies Allergy/AdvReac Type Severity Reaction Status Date / Time Iodinated Contrast Media Allergy Intermediate HIVES Verified 08/04/21 19:31 iodine Allergy Unknown DIARRHEA Verified 08/04/21 19:31 dobutamine AdvReac Severe SHORTNESS Verified 08/04/21 19:31 OF BREATH famotidine AdvReac Unknown Diarrhea Verified 08/04/21 19:31 Home Medications Medication Instructions Recorded Confirmed Type acetaminophen 650 mg 650 mg PO Q8H PRN 08/04/21 08/04/21 History tablet,extended release albuterol sulfate 90 mcg/actuation 2 puff INHALATION Q4H 08/04/21 08/04/21 History aerosol inhaler amlodipine 10 mg tablet 10 mg PO DAILY 08/04/21 08/04/21 History aspirin 81 mg chewable tablet 81 mg PO DAILY 08/04/21 08/04/21 History atorvastatin 20 mg tablet 20 mg PO DAILY 08/04/21 08/04/21 History diclofenac sodium 1 % topical gel 4 g TOPICAL QID 08/04/21 08/04/21 History docusate sodium 100 mg capsule 100 mg PO DAILY 08/04/21 08/04/21 History ferrous sulfate 325 mg (65 mg 325 mg PO DAILY 08/04/21 08/04/21 History iron) tablet folic acid 1 mg tablet 1 mg PO DAILY 08/04/21 08/04/21 History ipratropium 0.5 mg-albuterol 3 mg 3 ml INHALATION Q4H PRN 08/04/21 08/04/21 History (2.5 mg base)/3 mL nebulization soln latanoprost 0.005 % eye drops 1 drp OPHTHALMIC (EYE) HS 08/04/21 08/04/21 History levothyroxine 25 mcg tablet 25 mcg PO DAILY 08/04/21 08/04/21 History lisinopril 40 mg tablet 40 mg PO DAILY 08/04/21 08/04/21 History loratadine 10 mg tablet 10 mg PO DAILY PRN 08/04/21 08/04/21 History lorazepam 1 mg tablet 1 mg PO BID PRN 08/04/21 08/04/21 History meloxicam 7.5 mg tablet 7.5 mg PO DAILY PRN 08/04/21 08/04/21 History metoprolol succinate 50 mg 50 mg PO DAILY 08/04/21 08/04/21 History tablet,extended release 24 hr montelukast 10 mg tablet 10 mg PO DAILY 08/04/21 08/04/21 History omeprazole 20 mg capsule,delayed 20 mg PO DAILY 08/04/21 08/04/21 History release polyethylene glycol 3350 17 gram 17 g PO DAILY PRN 08/04/21 08/04/21 History oral powder packet sertraline 100 mg tablet 100 mg PO DAILY 08/04/21 08/04/21 History Past Med/Surg History Medical History (Updated 08/05/21 @ 13:05 by Trace Valera MD) Anxiety Asthma COPD exacerbation Depression Hypertension Hypertension Hypertensive urgency Hypothyroidism Pancreatic mass "noted on CT 01/16/15" Tachycardia Surgical History Status post appendectomy Status post cataract extraction Status post partial mastectomy "left breast, benign disease" Social History Smoking Status: Never smoker Preferred Language: [place]an Feels Safe at Home: Yes Review of Systems Review of Systems: As per HPI, all 10 systems reviewed, all other ROS negative Physical Exam Physical Exam: GENERAL: Slightly anxious and uncomfortable, audible wheezes, morbidly obese, pleasant, no respiratory distress SKIN: Normal color, warm HEENT: [place] palpebral conjunctivae, no ptosis, dry buccal mucosa NECK : Supple, short neck, no tenderness CHEST : Decreased breath sounds, expiratory wheezes, no tenderness HEART : RRR, no obvious murmurs ABDOMEN: Some distention, nontender EXTREMITIES : Minimal LE swelling, no LE tenderness, no other conspicuous deformities noted NEUROLOGIC : Coherent, no facial asymmetry, no other gross focality Results & Data Results & Data ([facility]) Vital Signs (Past 12 Hours) Vital Signs Temp Pulse Pulse Resp BP BP Pulse Ox 08/05/21 01:00 91 H 16 136/78 95 08/05/21 00:19 89 16 148/89 H 95 08/04/21 23:54 83 18 148/89 H 95 08/04/21 21:00 93 H 20 173/95 H 95 08/04/21 19:34 94 H 24 160/89 H 95 08/04/21 19:20 92 H 18 97 08/04/21 18:53 96 08/04/21 18:30 36.9 C 92 H 20 160/89 H [address] head initial read: No intracranial hemorrhage. No significant mass effect or midline shift. No significant alteration from the examination 06/25/2015. Similar deep white matter presumed microvascular changes. Paranasal sinuses and mastoid air cells are well-aerated CT chest initial read: Accounting for limitationswith respiratoryartifact, there is no definite evidence for pulmonary embolism. Asymmetricallyelevated right hemidiaphragm. Presumed compressive atelectatic changes of the inferior right middle lobe and right lower lobe secondaryto the elevated hemidiaphragm. No definite focal consolidation. No pleural effusion or pneumothorax. The thoracic aorta demonstrates atherosclerotic changes but is patent without dissection or aneurysm. The cardiac chambers are unremarkable. No pericardial effusion. No s ignificant mediastinal or hilar adenopathy. 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 No acute osseous or significant overlying soft tissue abnormality. EKG as per my interpretation rate 95, NSR, LAD, LAFB, incomplete RBBB, T wave abnormality septal leads, LVH
--- NOTE | 2021-08-05 06:41 | CT Scan Report ---
CT OF THE HEAD WITHOUT CONTRAST CLINICAL HISTORY: Headache. COMPARISON STUDY: Head CT June 25, 2015. CT DOSE: 1565.24 mGy.cm TECHNIQUE: Helical axial images of the head were obtained without IV contrast. Automated exposure con trol was utilized for the study. A dose lowering technique was utilized adhering to the principles o f ALARA. FINDINGS: No acute intracranial hemorrhage, midline shift or mass effect is present. White matter hyp odensities are similar to prior exam and suggest small vessel disease. The ventricular system is unre markable. The basal cisterns are patent. No extra-axial collections are present. There are no finding s to suggest acute dural sinus thrombosis or acute territorial infarct. No significant calvarial abno rmalities are present. Visualized portions of the sinuses and mastoid air cells are clear. IMPRESSION: No acute intracranial findings. ACT 112: Negative or not required by law. Electronically signed by: Josemanuel Bella M.D. 08/05/2021 6:40 AM
[2021-08-05] MEDS ORDERED: XOPENEX/ATROVENT 1.25mg/0.5MG NEB COMBO NEB SCH (07:00)
[2021-08-05] MEDS: LEVALBUTEROL 1.25MG/0.5ML NEB INH SCH ×3 (07:07→19:11)
[2021-08-05] MEDS: IPRATROPIUM BROMIDE NEB SOLN 0.02% 2.5 ML VIAL INH SCH ×3 (07:07→19:11)
[2021-08-05] MEDS: FOLIC ACID 1 MG TAB PO SCH (08:24)
[2021-08-05] MEDS: ENOXAPARIN INJ 40 MG/0.4 ML SYR SQ SCH (08:24)
[2021-08-05] MEDS: DOCUSATE SODIUM 100 MG CAP PO SCH (08:25)
[2021-08-05] MEDS: METOPROLOL SUCC 50MG EXT REL TAB PO SCH (08:25)
[2021-08-05] MEDS: ATORVASTATIN 20 MG TAB PO SCH (08:25)
[2021-08-05] MEDS: ASPIRIN 81 MG CHEW PO SCH (08:25)
[2021-08-05] MEDS: SERTRALINE HCL 100 MG TABLET PO SCH (08:25)
[2021-08-05] MEDS: lisinopril 40 MG TAB PO SCH (08:25)
[2021-08-05] MEDS: FERROUS SULFATE 325 MG TAB PO SCH (08:25)
[2021-08-05] MEDS: LEVOTHYROXINE SODIUM 25 MCG TABLET PO SCH (08:25)
[2021-08-05] MEDS: PANTOprazole 40 MG TAB PO SCH (08:26)
[2021-08-05] MEDS: MONTELUKAST SODIUM 10 MG TABLET PO SCH (08:26)
[2021-08-05] MEDS: DICLOFENAC SOD 1% GEL 100 GM TUBE EXT SCH ×4 (08:26→20:54)
--- NOTE | 2021-08-05 08:40 | CT Scan Report ---
CT angio chest PE protocol CLINICAL HISTORY: sob . Evaluate for pulmonary embolus COMPARISON STUDY: Previous CTA chest from 09/04/2014 and portable chest from 08/04/2021 TECHNIQUE: CT Angio of the chest was performed.followed by image post processing with coronal, and s agittal MIP reformats. Contrast Volume: Optiray 320, 121 ml FINDINGS: Vasculature: There is homogeneous perfusion of the pulmonary vasculature bilaterally. No intraluminal filling defects or evidence for pulmonary embolus is seen. Airway: The airway is clear. No endobronchial lesion is identified. Lungs: There is asymmetric elevation of the right hemidiaphragm with crowding of the bronchovascular markings in the right lung base. The lungs are otherwise clear of acute alveolar opacities, air bronc hograms or pulmonary nodules. The suspected pulmonary vascular congestion on the portable chest radio graph most likely relates to the patient's body habitus. There is no evidence for vascular congestion . Pleura: There is no evidence for pleural effusion. There is no evidence for pneumothorax. Mediastinum: There is no evidence for pathologic adenopathy. The heart size is again enlarged. Promin ent coronary artery calcification is present. The thoracic aorta is within normal limits. There is at herosclerotic calcification of the aortic arch and origin of the great vessels. There is no evidence for pericardial effusion. Upper abdomen:The adrenal glands are normal bilaterally. There is a small to moderate size hiatal her jarek. Osseous structures: There is no acute osseous pathology. Degenerative changes are seen within the sp ine. Impression: 1. No CTA evidence for pulmonary embolus. 2. No acute chest disease. 3. Prominent coronary artery calcification. 4. Small to moderate size hiatal hernia. 5. Additional nonacute findings are delineated above. ACT 112: Negative or not required by law. Electronically signed by: Matt Mg M.D. 08/05/2021 8:38 AM
[2021-08-05] MEDS ORDERED: methylPREDNISolone 40 MG in SYRINGE 0 ML IV SCH (09:00)
--- NOTE | 2021-08-05 16:47 | Communication Note ---
Date of Service: August 05, 2021 Patient seen and examined. Patient currently reports improvement in chest tightness and wheezing Exam notable for expiratory rhonchi, on room air Continue nebs, methylprednisolone for today Agree with other plans as detailed in H&P by Dr Huerta this morning
[2021-08-05] MEDS: LATANOPROST 0.005% OP SOLN 2.5 ML BTL OP SCH (20:52)
[2021-08-06] MEDS: LEVALBUTEROL 1.25MG/0.5ML NEB INH SCH ×4 (01:17→20:01)
[2021-08-06] MEDS: IPRATROPIUM BROMIDE NEB SOLN 0.02% 2.5 ML VIAL INH SCH ×4 (01:18→20:01)
[2021-08-06] MEDS ORDERED: MICONAZOLE NITRATE POWDER 43 GM EXT PRN (05:26)
--- NOTE | 2021-08-06 06:12 | Electrocardiogram Report ---
Test Reason : Blood Pressure : / mmHG Vent. Rate : 094 BPM Atrial Rate : 094 BPM P-R Int : 120 ms QRS Dur : 098 ms QT Int : 368 ms P-R-T Axes : 045 -49 052 degrees QTc Int : 460 ms Poor data quality, interpretation may be adversely affected Normal sinus rhythm with Premature atrial complexes Left axis deviation Moderate voltage criteria for LVH, may be normal variant Poor R wave progression, consider anterior FL vs. lead placement vs. LVH Abnormal ECG When compared with ECG of 27-JAN-2017 02:13, Premature atrial complexes are now Present Confirmed by Shayne Dawson ([id number]) on 08/06/2021 6:12:20 AM Referred By: Maria Luisa Preciado Confirmed By:Shayne Dawson
[2021-08-06] MEDS: LEVOTHYROXINE SODIUM 25 MCG TABLET PO SCH (06:17)
[2021-08-06 07:48] LABS: Hematocrit (blood only) 40.3 % (37-47); Hemoglobin 13.5 g/dL (12.0-16.0); Mean Corpuscular Hgb Conc 33.5 g/dL (32-36); Mean Corpuscular Volume 92.4 fL (80-100); Mean Platelet Volume 11.3 fL (7.4-10.4); Platelet Count 213 K/uL (130-400); RDW Coefficient of Variation 13.8 % (11.5-14.5); Red Blood Count 4.36 M/uL (4.2-5.4); White Blood Count 11.33 K/uL (4.8-10.8)
[2021-08-06 08:18] LABS: BUN Creatinine Ratio 32.8 (10-20); Calcium 9.1 mg/dl (8.5-10.1); Creatinine Clr Calc Pharmacy 56.7 ml/min; Est GFR (African American) 81.9 ml/min; Est GFR (Non-African American) 70.7 ml/min; Potassium 3.5 mmol/L (3.5-5.1)
[2021-08-06] MEDS: ATORVASTATIN 20 MG TAB PO SCH (09:33)
[2021-08-06] MEDS: METOPROLOL SUCC 50MG EXT REL TAB PO SCH (09:33)
[2021-08-06] MEDS: amLODIPine BESYLATE 5 MG TAB PO SCH (09:33)
[2021-08-06] MEDS: lisinopril 40 MG TAB PO SCH (09:33)
[2021-08-06] MEDS: FERROUS SULFATE 325 MG TAB PO SCH (09:33)
[2021-08-06] MEDS: SERTRALINE HCL 100 MG TABLET PO SCH (09:33)
[2021-08-06] MEDS: PANTOprazole 40 MG TAB PO SCH (09:34)
[2021-08-06] MEDS: ASPIRIN 81 MG CHEW PO SCH (09:34)
[2021-08-06] MEDS: MONTELUKAST SODIUM 10 MG TABLET PO SCH (09:34)
[2021-08-06] MEDS: FOLIC ACID 1 MG TAB PO SCH (09:34)
[2021-08-06] MEDS: DICLOFENAC SOD 1% GEL 100 GM TUBE EXT SCH ×4 (09:35→20:46)
[2021-08-06] MEDS: ENOXAPARIN INJ 40 MG/0.4 ML SYR SQ SCH (09:35)
[2021-08-06] MEDS: DOCUSATE SODIUM 100 MG CAP PO SCH (09:36)
[2021-08-06] MEDS: predniSONE 20 MG TAB PO SCH (09:43)
--- NOTE | 2021-08-06 10:27 | Hospitalist Progress Note ---
Date of Service August 06, 2021 Assessment & Plan (1) Asthma exacerbation: Plan: Patient symptoms remarkably improved. Continue nebs Provided education on use of nebs at home. Methylprednisolone change to prednisone to complete treatment Hypertension H/o NSVT Continue amlodipine, lisinopril, metoprolol Hypothyroidism Continue levothyroxine PT recommend SNF/ rehab. Patient will like rehab CM informed DVT prophylaxis per Lovenox subcu Full code Patient requests for her niece to be updated of progress. Ms. Chai Soto, contact #[phone]. Admission and Anticipated Discharge Date Admission Date: August 05, 2021 Subjective 80-year-old woman with history of hypertension, NSVT, asthma, hypothyroidism who presented with dry cough, shortness of breath and wheezing. Being managed for asthma exacerbation. Patient seen and examined this morning. Wheezing has resolved as well as shortness of breath. Reports intermittent chronic cough which has improved significantly. Denies any fevers, chills, nausea Denies abdominal pain, diarrhea constipation Denies dysuria, frequency or urgency Physical Exam Constitutional: + well hydrated and + morbidly obese; no acute distress Eyes: PERRL, conjunctivae normal, anicteric sclerae ENMT: external ear and nose normal, oropharynx normal Respiratory: normal respiratory effort; no respiratory distress Scattered rhonchi Cardiovascular: RRR S1-S2 Gastrointestinal (Abdomen): normal bowel sounds, soft, nontender, no hepatosplenomegaly Musculoskeletal: No pedal edema Neurologic: PERRL, EOMI, accommodation nl, no face palsy, no dysarthria Psychiatric: A+Ox3, euthymic affect Results & Data Results & Data ([facility]) Vital Signs (Past 12 Hours) Vital Signs Temp Pulse Pulse Resp BP Pulse Ox 08/06/21 08:00 91 H 08/06/21 07:41 36.8 C 91 H 20 161/81 H 95 08/06/21 07:23 74 20 90 08/06/21 03:16 36.8 C 70 18 111/70 94 08/06/21 01:19 79 24 95 08/05/21 23:00 36.9 C 85 85 24 166/91 H 96 Laboratory Results Abnormal lab results 08/06/21 08/06/21 Range/Units 07:37 07:37 WBC 11.33 H (4.8-10.8) K/uL RDW Std Deviation 47.0 H (36.4-46.3) fL MPV 11.3 H (7.4-10.4) fL Chloride 109 H (98-107) mmol/L BUN 26 H (7-18) mg/dl BUN/Creatinine Ratio 32.8 H (10-20) Glucose 107 H (70-99) mg/dl
[2021-08-06] MEDS: LORazepam 1 MG TAB PO PRN (15:33)
[2021-08-06] MEDS: LATANOPROST 0.005% OP SOLN 2.5 ML BTL OP SCH (20:46)
[2021-08-07] MEDS: LEVALBUTEROL 1.25MG/0.5ML NEB INH SCH ×3 (00:37→13:19)
[2021-08-07] MEDS: IPRATROPIUM BROMIDE NEB SOLN 0.02% 2.5 ML VIAL INH SCH ×3 (00:37→13:19)
[2021-08-07] MEDS: LEVOTHYROXINE SODIUM 25 MCG TABLET PO SCH (05:45)
[2021-08-07] MEDS: lisinopril 40 MG TAB PO SCH (08:16)
[2021-08-07] MEDS: FOLIC ACID 1 MG TAB PO SCH (08:16)
[2021-08-07] MEDS: METOPROLOL SUCC 50MG EXT REL TAB PO SCH (08:17)
[2021-08-07] MEDS: ATORVASTATIN 20 MG TAB PO SCH (08:17)
[2021-08-07] MEDS: SERTRALINE HCL 100 MG TABLET PO SCH (08:17)
[2021-08-07] MEDS: predniSONE 20 MG TAB PO SCH (08:17)
[2021-08-07] MEDS: MONTELUKAST SODIUM 10 MG TABLET PO SCH (08:17)
[2021-08-07] MEDS: amLODIPine BESYLATE 5 MG TAB PO SCH (08:18)
[2021-08-07] MEDS: ENOXAPARIN INJ 40 MG/0.4 ML SYR SQ SCH (08:18)
[2021-08-07] MEDS: PANTOprazole 40 MG TAB PO SCH (08:18)
[2021-08-07] MEDS: FERROUS SULFATE 325 MG TAB PO SCH (08:18)
[2021-08-07] MEDS: DICLOFENAC SOD 1% GEL 100 GM TUBE EXT SCH ×2 (08:19→13:11)
[2021-08-07] MEDS: DOCUSATE SODIUM 100 MG CAP PO SCH (08:19)
[2021-08-07] MEDS: ASPIRIN 81 MG CHEW PO SCH (08:30)
--- NOTE | 2021-08-07 10:17 | Discharge Summary ---
Date of Service August 07, 2021 Admission HPI Per Admitting Provider History obtained from patient and records. Medical history is significant for hypertension, NSVT, bronchial asthma, history of vocal cord dysfunction, GERD, anxiety/mood disorder, mild cognitive impairment, hypothyroidism Last confinement May 2015 for hypertensive urgency. Few days history of dry cough, wheezing, shortness of breath without chest pain. Achy headache symptoms. No known recent COVID-19 contacts. Patient denies aspiration. No fever, no chills. Denies fluid retention. Asthma usually well controlled as per patient. Patient brought to the ER for evaluation. Received Solu-Medrol and neb treatment at the ER. MEDICAL HISTORY: As above. SURGICAL HISTORY: Appendectomy, mastectomy for benign disease, cholecystectomy, cataract surgery. FAMILY HISTORY: Heart disease, alcoholism PERSONAL AND SOCIAL HISTORY: Nonsmoker. No chronic intake of alcoholic beverages. Retired [employer] employee. Admission Exam Per Admitting Provider GENERAL: Slightly anxious and uncomfortable, audible wheezes, morbidly obese, pleasant, no respiratory distress SKIN: Normal color, warm HEENT: [place] palpebral conjunctivae, no ptosis, dry buccal mucosa NECK : Supple, short neck, no tenderness CHEST : Decreased breath sounds, expiratory wheezes, no tenderness HEART : RRR, no obvious murmurs ABDOMEN: Some distention, nontender EXTREMITIES : Minimal LE swelling, no LE tenderness, no other conspicuous deformities noted NEUROLOGIC : Coherent, no facial asymmetry, no other gross focality Principal Diagnosis Asthma exacerbation Discharge Exam Constitutional + well hydrated and + morbidly obese; no acute distress Eyes PERRL, conjunctivae normal, anicteric sclerae ENMT external ear and nose normal, oropharynx normal Respiratory normal respiratory effort, lungs clear to auscultation Cardiovascular RRR S1 S2 Gastrointestinal (Abdomen) normal bowel sounds, soft, nontender, no hepatosplenomegaly Musculoskeletal No pedal edema Neurologic PERRL, EOMI, accommodation nl, no face palsy, no dysarthria Psychiatric A+Ox3, euthymic affect Discharge Data Allergies Allergy/AdvReac Type Severity Reaction Status Date / Time Iodinated Contrast Media Allergy Intermediate HIVES Verified 08/04/21 19:31 iodine Allergy Unknown DIARRHEA Verified 08/04/21 19:31 dobutamine AdvReac Severe SHORTNESS Verified 08/04/21 19:31 OF BREATH famotidine AdvReac Unknown Diarrhea Verified 11/23/21 19:31 Consultations 08/04/21 20:45 ED Decision to Admit Stat Ordered Studies 08/04/21 23:53 CT angio chest PE protocol Urgent Vasculature: There is homogeneous perfusion of the pulmonary vasculature bilaterally. No intraluminal filling defects or evidence for pulmonary embolus is seen. Airway: The airway is clear. No endobronchial lesion is identified. Lungs: There is asymmetric elevation of the right hemidiaphragm with crowding of the bronchovascular markings in the right lung base. The lungs are otherwise clear of acute alveolar opacities, air bronchograms or pulmonary nodules. The suspected pulmonary vascular congestion on the portable chest radiograph most likely relates to the patient's body habitus. There is no evidence for vascular congestion. Pleura: There is no evidence for pleural effusion. There is no evidence for pneumothorax. Mediastinum: There is no evidence for pathologic adenopathy. The heart size is again enlarged. Prominent coronary artery calcification is present. The thoracic aorta is within normal limits. There is atherosclerotic calcification of the aortic arch and origin of the great vessels. There is no evidence for pericardial effusion. Upper abdomen:The adrenal glands are normal bilaterally. There is a small to moderate size hiatal hernia. Osseous structures: There is no acute osseous pathology. Degenerative changes are seen within the spine. Impression: 1. No CTA evidence for pulmonary embolus. 2. No acute chest disease. 3. Prominent coronary artery calcification. 4. Small to moderate size hiatal hernia. 5. Additional nonacute findings are delineated above. CT head/brain wo con Urgent No acute intracranial hemorrhage, midline shift or mass effect is present. White matter hypodensities are similar to prior exam and suggest small vessel disease. The ventricular system is unremarkable. The basal cisterns are patent. No extra- axial collections are present. There are no findings to suggest acute dural sinus thrombosis or acute territorial infarct. No significant calvarial abnormalities are present. Visualized portions of the sinuses and mastoid air cells are clear. IMPRESSION: No acute intracranial findings. Hospital Course (1) Asthma exacerbation: Patient symptoms remarkably improved. Provided education on use of nebs at home. She reports she has all her meds at home Discharged on prednisone to complete treatment at home Hypertension H/o NSVT Continue amlodipine, lisinopril, metoprolol Hypothyroidism Continue levothyroxine PT recommend SNF/ rehab. Patient initially agreed but later changed her mind I discussed the need for this considering her activity level and ambulatory issues/dysfunction She understood but stated she will prefer home health and PT at home CM informed. Home health services arranged Updated patient's family Chai Total Time Total Time Spent Total Time Spent (In Minutes): 45 Total Time Includes: Examination of the Patient, Discharge Planning, Medication Reconciliation and Other Discharge Plan Discharge Items Patient Disposition: Home - Home Health Services Reason For Visit: Shortness of breath Discharge Diagnosis: Asthma exacerbation Activity: As commented below Activity Comment: Per physical therapist instructions Non-emergency contact: Primary Care Provider Call non-emergency contact if: you have any medication questions and your symptoms worsen Follow-up/Referrals: Maria Luisa Preciado MD [Primary Care Provider] - Diet: Heart Healthy Addtl Attending Provider Instructions: Ms Chavira. You came to the hospital complaining of worsening shortness of breath and chest tightness. You were evaluated and treated for asthma exacerbation. Your symptoms resolved. You were evaluated by Physical therapist and rehab recommended but you declined this. You are being discharged home with home health services/PT. You are being discharged on 2 more days of prednisone to complete treatment. Please continue to use your home inhalers and nebs as prescribed. Please ensure follow up with your Primary Doctor It was a pleasure taking care of you. Pending Studies at Discharge: No Stand-Alone Forms: My [facility] [place], Smoking Cessation Medications and DC Order Prescriptions: New prednisone 20 mg Tablet 40 mg PO QAM 2 Days Qty: 4 RF: 0 Continued latanoprost 0.005 % Drops 1 drp OPHTHALMIC (EYE) HS RF: 0 atorvastatin 20 mg tablet 20 mg PO DAILY RF: 0 ipratropium-albuterol 0.5 mg-3 mg(2.5 mg base)/3 mL solution for nebulization 3 ml INHALATION Q4H PRN (Reason: Shortness Of Breath) RF: 0 polyethylene glycol 3350 17 gram Powder In Packet 17 g PO DAILY PRN (Reason: Constipation) RF: 0 metoprolol succinate 50 mg Tablet Extended Release 24 Hr 50 mg PO DAILY RF: 0 sertraline 100 mg Tablet 100 mg PO DAILY RF: 0 levothyroxine 25 mcg Tablet 25 mcg PO DAILY RF: 0 acetaminophen 650 mg Tablet Extended Release 650 mg PO Q8H PRN (Reason: Pain) RF: 0 meloxicam 7.5 mg Tablet 7.5 mg PO DAILY PRN (Reason: Pain) RF: 0 amlodipine 10 mg tablet 10 mg PO DAILY RF: 0 ferrous sulfate 325 mg (65 mg iron) tablet 325 mg PO DAILY RF: 0 docusate sodium 100 mg Capsule 100 mg PO DAILY RF: 0 omeprazole 20 mg Capsule,Delayed Release(Dr/Ec) 20 mg PO DAILY RF: 0 aspirin 81 mg Tablet,Chewable 81 mg PO DAILY RF: 0 folic acid 1 mg Tablet 1 mg PO DAILY RF: 0 montelukast 10 mg Tablet 10 mg PO DAILY RF: 0 lorazepam 1 mg Tablet 1 mg PO BID PRN (Reason: Anxiety) RF: 0 albuterol sulfate 90 mcg/actuation Hfa Aerosol Inhaler 2 puff INHALATION Q4H RF: 0 lisinopril 40 mg Tablet 40 mg PO DAILY RF: 0 loratadine 10 mg Tablet 10 mg PO DAILY PRN (Reason: Allergy Symptoms) RF: 0 diclofenac sodium 1 % Gel 4 g TOPICAL QID RF: 0 fluticasone propion-salmeterol [Wixela Inhub] 250-50 mcg/dose blister with device 1 inh INHALATION BID RF: 0 Discharge Orders: Discharge Order (Routine); Ordered 08/07/21 Ordered By: Fatou Wills Admission Data Admit Date/Time: 08/06/21 10:19 Attending Provider: Fatou Wills I. Admit Provider: Fatou Wills I. Primary Care Provider: Maria Luisa Preciado Other Providers: Trace Valera Other Interventions: Discharge Summary Assessment (RN) Last Done: 08/07/21 11:54
[2021-08-07] MEDS: LORazepam 1 MG TAB PO PRN (10:24)
== END 2021-08-07 14:20 | disposition home health service (06) | DRG 203 ==
LOC: ED 18:17 → EDINP 18:17 → 2N 08-05 22:53

== ENCOUNTER 2021-09-20 15:06 | Inpatient (IN) ==
--- NOTE | 2021-09-20 15:26 | Emergency Department Note ---
Impression & Plan Dementia ED Provider Note Provider: Tae Hart MD DATE OF SERVICE: 09/20/2021 CHIEF COMPLAINT: Confusion? HISTORY OF PRESENT ILLNESS: Patient is a 80-year-old female history of hyponatremia, glaucoma, asthma, as well as mild cognitive impairment presented via ambulance from her home today. EMS reports they were called for some care concerns and some mild confusion for the patient. EMS state upon arrival that she had a scattering of meds and that some of her meds for various days were taken and is with not. The patient herself states she is been taking her meds appropriate. She denies feeling confused or foggy. EMS report they were called for this reason. Patient denies pain at this time recent fever cough. Denies any abdominal pain or nausea or vomiting. Patient states she lives alone. Patient states she has been doing okay. When asked what year it is, what holiday was recent, what season it is, or what day of the week it is she states she does not pay attention and she does not know. She states she believes it is 1981. Reports that she does have some help daily from family in the area agency on aging. REVIEW OF SYSTEMS: A total of 10 review of systems was obtained and negative except as stated above in the HPI. PAST MEDICAL HISTORY: As noted above MEDICATIONS: Reviewed home medication list SOCIAL HISTORY: Reportedly lives alone by herself PHYSICAL EXAM: GENERAL: alert and oriented to person in no acute distress on stretcher but not oriented to year/season/day of the week Head: normocephalic and atraumatic EYES: No injection, discharge or icterus. PERRL NECK: Trachea midline. ENT: Mucous membranes pink and moist. LUNGS: Airway patent. No retractions. Breath sounds clear with good air entry bilaterally. HEART: Regular rate and rhythm. No chest wall tenderness ABDOMEN: Soft and non-tender, without guarding or rebound. EXTREMITIES: Without swelling, tenderness or deformity NEUROLOGICAL: No focal deficits. No aphasia. No facial droop or slurred speech. EK bpm normal sinus rhythm. No PVC or PAC. No acute ST segment elevation or depression with left axis and incomplete right bundle branch block. Nonspecific ST changes. CONTINUOUS CARDIAC MONITORING: was ordered and showed a heart rate of 70s-80s bpm in normal sinus rhythm Patient's laboratory studies and imaging reviewed. Differential includes Infection, dehydration, metabolic abnormality, hypo/hyperglycemia, electrolyte disturbance, anemia, hypoxia, cardiac sources, intracerebral event, toxicologic, neurologic, as well as other pathologies. IMPRESSION/MEDICAL DECISION MAKING: Patient with some question of perhaps confusion and issues with meds who lives at home by herself. Patient with some mild cog impairment and not oriented to time and year or season. Patient without significant focal neurological deficit. CT of the head without significant acute intracranial abnormality noted. Chest x-ray appears clear. Covid test was sent. No significant le ukocytosis or anemia today. No significant electrolyte abnormality signs of renal dysfunction. TSH within normal limits. No transaminitis or troponin elevation. Negative Covid. Urinalysis pending collection. Patient was granted me reaching out to other family members. Reached out to first emergency contact her niece. She reports that the patient's not been sleeping this weekend is not doing well at home and not really taking her medicines. She reports the patient has called her more than 175 times a day and she is very concerned about the patient's safety. Evidently according to the niece the patient told the niece today at least 5 times that she wanted to be and was threatening to maybe take her medicines to overdose. No hallucinations reported. ( Niece reports additional information can be gotten from Herlinda who assists @ [phone] and her land lord is @ [phone]) Discussed this with the patient as she states that she is somewhat hopeless and has not much to live for. She denies wanting to harm her self and does not remember stating that she do this to her knees. She also does not remember talking to her niece on the phone during her encounter here which she did with the nurse. Patient has some significant memory deficits. I do not feel the patient is in a safe position to go home and reside by herself at this time in her trailer. She thinks 15 March just happened it is 1981. Discussed with the patient that she may need additional home services or possibly placement. Patient was in agreement this time is staying until additional safety services could be arranged. I doubt she is actual threat to her self from an intentional suicide standpoint but again with her advancing dementia do not feel she is currently safe to go home. Discussed with the [facility] hospitalist. DIAGNOSIS: Dementia DISPOSITION: Hospitalist will evaluate Patient was agreeable with this plan. Past Med/Surg History Medical History (Updated 09/20/21 @ 16:54 by Tae Hart M.D.) Anxiety Asthma COPD exacerbation Depression Hypertension Hypertension Hypertensive urgency Hypothyroidism Pancreatic mass "noted on CT 01/16/15" Tachycardia Surgical History Status post appendectomy Status post cataract extraction Status post partial mastectomy "left breast, benign disease" Social History Smoking Status: Never smoker Hx Alcohol Use: No Hx Substance Use: No Preferred Language: Greenlandic Communication Ability: Effective Beliefs That Will Affect Care: None marital status: / Current Living Situation: Alone Feels Safe at Home: Yes Assistive Devices: Walker Allergies Allergies Allergy/AdvReac Type Severity Reaction Status Date / Time Iodinated Contrast Media Allergy Intermediate HIVES Verified 09/20/21 16:32 iodine Allergy Intermediate DIARRHEA Verified 09/20/21 16:32 dobutamine AdvReac Severe SHORTNESS Verified 09/20/21 16:32 OF BREATH famotidine AdvReac Intermediate Diarrhea Verified 09/20/21 16:32 Home Meds Home Medications Medication Instructions Recorded Confirmed acetaminophen 650 mg 650 mg PO Q8H PRN 08/04/21 09/20/21 tablet,extended release albuterol sulfate 90 mcg/actuation 2 puff INHALATION Q4H PRN 08/04/21 09/20/21 aerosol inhaler amlodipine 10 mg tablet 10 mg PO QAM 08/04/21 09/20/21 aspirin 81 mg chewable tablet 81 mg PO QAM 08/04/21 09/20/21 atorvastatin 20 mg tablet 20 mg PO QAM 08/04/21 09/20/21 docusate sodium 100 mg capsule 100 mg PO DAILY 08/04/21 09/20/21 ferrous sulfate 325 mg (65 mg 325 mg PO QAM 08/04/21 09/20/21 iron) tablet folic acid 1 mg tablet 1 mg PO QAM 08/04/21 09/20/21 levothyroxine 25 mcg tablet 25 mcg PO QAM 08/04/21 09/20/21 lisinopril 40 mg tablet 40 mg PO QAM 08/04/21 09/20/21 loratadine 10 mg tablet 10 mg PO DAILY PRN 08/04/21 09/20/21 lorazepam 1 mg tablet 1 mg PO BID 08/04/21 09/20/21 meloxicam 7.5 mg tablet 7.5 mg PO DAILY PRN 08/04/21 09/20/21 metoprolol succinate 50 mg 50 mg PO QAM 08/04/21 09/20/21 tablet,extended release 24 hr montelukast 10 mg tablet 10 mg PO QAM 08/04/21 09/20/21 omeprazole 20 mg capsule,delayed 20 mg PO QAM 08/04/21 09/20/21 release polyethylene glycol 3350 17 gram 17 g PO DAILY PRN 08/04/21 09/20/21 oral powder packet sertraline 100 mg tablet 100 mg PO QAM 08/04/21 09/20/21 fluticasone 250 mcg-salmeterol 50 1 inh INHALATION BID 08/06/21 09/20/21 mcg/dose blistr powdr for inhalation (Wixela Inhub) Results & Data (ED) Vital Signs Vital Signs - 24 hr 09/20/21 15:05 09/20/21 16:05 Temperature 37.1 C Temperature Source Oral Pulse Rate 85 Pulse Rate [Apical] 79 Respiratory Rate 18 18 Blood Pressure 154/85 H Blood Pressure [Right Arm] 163/111 H Blood Pressure Mean 108 Blood Pressure Mean [Right Arm] 128 Pulse Oximetry 95 95 Oxygen Delivery Method Room Air Room Air Sepsis Recent Fever Within 48 Hours No Sepsis New/Unexplained Change in Mental Status No Sepsis Action Taken by Nursing No Action Required Laboratory Data Result diagrams: 09/20/21 15:25 09/20/21 15:25 Lab Results 09/20/21 09/20/21 09/20/21 Range/Units 15:25 15:25 16:05 WBC 9.84 (4.8-10.8) K/uL RBC 5.18 (4.2-5.4) M/uL Hgb 16.1 H (12.0-16.0) g/dL Hct 48.1 H (37-47) % MCV 92.9 (80-100) fL MCH 31.1 (25-34) pg MCHC 33.5 (32-36) g/dL RDW Std Deviation 47.4 H (36.4-46.3) fL RDW Coeff of Gui 14.0 (11.5-14.5) % Plt Count 254 (130-400) K/uL MPV 10.8 H (7.4-10.4) fL Immature Gran % (Auto) 0.2 % Neut % (Auto) 77.7 % Lymph % (Auto) 14.7 % Knott % (Auto) 6.9 % Eos % (Auto) 0.3 % Baso % (Auto) 0.2 % Neut # (Auto) 7.64 H (1.4-6.5) K/uL Lymph # (Auto) 1.45 (1.2-3.4) K/uL Knott # (Auto) 0.68 H (0.11-0.59) K/uL Eos # (Auto) 0.03 (0-0.5) K/uL Baso # (Auto) 0.02 (0-0.2) K/uL Immature Gran # (Auto) 0.02 (0.00-0.02) K/uL Sodium 139 (136-145) mmol/L Potassium 3.7 (3.5-5.1) mmol/L Chloride 106 (98-107) mmol/L Carbon Dioxide 26 (21-32) mmol/L Anion Gap 7.0 (3-11) BUN 24 H (7-18) mg/dl Creatinine 1.01 (0.6-1.2) mg/dl Est Cr Clr Drug Dosing 45.5 ml/min Est GFR ( Amer) 60.9 ml/min Est GFR (Non-Af Amer) 52.5 ml/min BUN/Creatinine Ratio 23.4 H (10-20) Glucose 130 H (70-99) mg/dl Calcium 9.7 (8.5-10.1) mg/dl Total Bilirubin 0.6 (0.2-1) mg/dl AST 18 (15-37) U/L ALT 32 (12-78) Alkaline Phosphatase 102 (45-117) U/L Troponin I < 0.015 (0-0.045) ng/ml Total Protein 8.8 H (6.4-8.2) gm/dl Albumin 3.9 (3.4-5.0) gm/dl Globulin 4.9 H (2.5-4.0) gm/dl Albumin/Globulin Ratio 0.8 L (0.9-2) TSH 2.200 (0.300-4.500) uIu/ml SARS-CoV-2, RNA, NAAT NEGATIVE (NEGATIVE) Imaging Data Radiologist's Impression: Chest X-Ray 09/20/21 15:19 XR chest 1V portable HISTORY: weakness COMPARISON: Chest 08/04/2021. FINDINGS: Chronic elevation of the right hemidiaphragm, unchanged. The heart r emains mildly enlarged. No new focal lung consolidations to suggest pneumonia. No evidence for pulmonary edema. Calcifications again noted within the aortic knob. No pleural effusions. No pneumothorax. Advanced degenerative changes again noted within the shoulders. IMPRESSION: No change in the cardiomegaly and elevated right hemidiaphragm. Otherwise, no acute process within the chest. ACT 112: Negative or not required by law. Electronically signed by: Joseph Bernal M.D. 09/20/2021 3:[address] 09/20/21 15:[address] DOSE: 1257.71 mGy.cm HISTORY: confusion TECHNIQUE: Multiaxial CT images of the head were performed without the use of intravenous contrast. Automated exposure control was utilized for this study. A dose lowering technique was utilized adhering to the principles of ALARA. Comparison: None. Findings: The paranasal sinuses and mastoid air cells are clear. The calvarium and skull base are intact. The ventricles and sulci are within normal limits. There is no mass, hematoma, midline shift, or acute infarct. 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 Extensive patchy white matter hypodensity seen within the brain. This is nonspecific but favors microvascular ischemic change. This is similar to the prior study. Impression: No acute intracranial abnormality. ACT 112: Negative or not required by law. Electronically signed by: Joseph Bernal M.D. 09/20/2021 3:49 PM Discharge Plan Visit Data Chief Complaint: Altered Mental Status Stated Complaint: AMS, Confusion ED Provider: Tae Hart Discharge Problem: Dementia Patient Disposition: Being Evaluated by Hospitalist Forms Stand Alone Forms: [facility] Prescriptions Prescriptions: No Action atorvastatin 20 mg tablet 20 mg PO QAM RF: 0 polyethylene glycol 3350 17 gram Powder In Packet 17 g PO DAILY PRN (Reason: Constipation) RF: 0 metoprolol succinate 50 mg Tablet Extended Release 24 Hr 50 mg PO QAM RF: 0 sertraline 100 mg Tablet 100 mg PO QAM RF: 0 levothyroxine 25 mcg Tablet 25 mcg PO QAM RF: 0 acetaminophen 650 mg Tablet Extended Release 650 mg PO Q8H PRN (Reason: Pain) RF: 0 meloxicam 7.5 mg Tablet 7.5 mg PO DAILY PRN (Reason: Pain) RF: 0 amlodipine 10 mg tablet 10 mg PO QAM RF: 0 ferrous sulfate 325 mg (65 mg iron) tablet 325 mg PO QAM RF: 0 docusate sodium 100 mg Capsule 100 mg PO DAILY RF: 0 omeprazole 20 mg Capsule,Delayed Release(Dr/Ec) 20 mg PO QAM RF: 0 aspirin 81 mg Tablet,Chewable 81 mg PO QAM RF: 0 folic acid 1 mg Tablet 1 mg PO QAM RF: 0 montelukast 10 mg Tablet 10 mg PO QAM RF: 0 lorazepam 1 mg Tablet 1 mg PO BID RF: 0 albuterol sulfate 90 mcg/actuation Hfa Aerosol Inhaler 2 puff INHALATION Q4H PRN (Reason: Shortness Of Breath) RF: 0 lisinopril 40 mg Tablet 40 mg PO QAM RF: 0 loratadine 10 mg Tablet 10 mg PO DAILY PRN (Reason: Allergy Symptoms) RF: 0 fluticasone propion-salmeterol [Wixela Inhub] 250-50 mcg/dose blister with device 1 inh INHALATION BID RF: 0 Referrals Referrals: Maria Luisa Preciado MD [Primary Care Provider] - Discharge Problem: Dementia Qualifiers: Dementia type: unspecified type
--- NOTE | 2021-09-20 15:38 | XRay Report ---
XR chest 1V portable HISTORY: weakness COMPARISON: Chest 08/04/2021. FINDINGS: Chronic elevation of the right hemidiaphragm, unchanged. The heart remains mildly enlarged. No new focal lung consolidations to suggest pneumonia. No evidence for pulmonary edema. Calcificatio ns again noted within the aortic knob. No pleural effusions. No pneumothorax. Advanced degenerative c hanges again noted within the shoulders. IMPRESSION: No change in the cardiomegaly and elevated right hemidiaphragm. Otherwise, no acute process within th e chest. ACT 112: Negative or not required by law. Electronically signed by: Joseph Bernal M.D. 09/20/2021 3:37 PM
[2021-09-20 15:40] LABS: Basophils # (auto) 0.02 K/uL (0-0.2); Basophils % (auto) 0.2 %; Eosinophils # (auto) 0.03 K/uL (0-0.5); Eosinophils % (auto) 0.3 %; Hematocrit (blood only) 48.1 % (37-47); Hemoglobin 16.1 g/dL (12.0-16.0); Immature Granulocytes # (auto) 0.02 K/uL (0.00-0.02); Immature Granulocytes % (auto) 0.2 %; Lymphocytes # (auto) 1.45 K/uL (1.2-3.4); Lymphocytes % (auto) 14.7 %; Mean Corpuscular Hemoglobin 31.1 pg (25-34); Mean Corpuscular Hgb Conc 33.5 g/dL (32-36); Mean Corpuscular Volume 92.9 fL (80-100); Mean Platelet Volume 10.8 fL (7.4-10.4); Monocytes # (auto) 0.68 K/uL (0.11-0.59); Monocytes % (auto) 6.9 %; Neutrophils # (auto) 7.64 K/uL (1.4-6.5); Neutrophils % (auto) 77.7 %; Platelet Count 254 K/uL (130-400); RDW Standard Deviation 47.4 fL (36.4-46.3); Red Blood Count 5.18 M/uL (4.2-5.4); White Blood Count 9.84 K/uL (4.8-10.8)
--- NOTE | 2021-09-20 15:51 | CT Scan Report ---
HEAD CT NONCONTRAST CT DOSE: 1257.71 mGy.cm HISTORY: confusion TECHNIQUE: Multiaxial CT images of the head were performed without the use of intravenous contrast. A utomated exposure control was utilized for this study. A dose lowering technique was utilized adheri ng to the principles of ALARA. Comparison: None. Findings: The paranasal sinuses and mastoid air cells are clear. The calvarium and skull base are int act. The ventricles and sulci are within normal limits. There is no mass, hematoma, midline shift, or acute infarct. 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 Extensive patchy white matter hypodensity seen within the brain. This is nonspecific but favors microvascular ischemic change. This is similar to the prior study. Impression: No acute intracranial abnormality. ACT 112: Negative or not required by law. Electronically signed by: Joseph Bernal M.D. 09/20/2021 3:49 PM
[2021-09-20 15:56] LABS: Alanine Aminotransferase 32 (12-78); Albumin Level 3.9 gm/dl (3.4-5.0); Aspartate Aminotransferase 18 U/L (15-37); BUN Creatinine Ratio 23.4 (10-20); Blood Urea Nitrogen 24 mg/dl (7-18); Calcium 9.7 mg/dl (8.5-10.1); Carbon Dioxide 26 mmol/L (21-32); Chloride 106 mmol/L (98-107); Creatinine Clr Calc Pharmacy 45.5 ml/min; Est GFR (African American) 60.9 ml/min; Est GFR (Non-African American) 52.5 ml/min; Glucose 130 mg/dl (70-99); Potassium 3.7 mmol/L (3.5-5.1); Sodium 139 mmol/L (136-145)
[2021-09-20 16:09] LABS: Albumin Globulin Ratio 0.8 (0.9-2); Alkaline Phosphatase 102 U/L (45-117); Bilirubin,Total 0.6 mg/dl (0.2-1); Globulin 4.9 gm/dl (2.5-4.0); Total Protein 8.8 gm/dl (6.4-8.2); Troponin I < 0.015 ng/ml (0-0.045)
--- NOTE | 2021-09-20 17:17 | History & Physical Report ---
Date of Service September 20, 2021 Assessment & Plan (1) Dementia: (2) Depression: (3) Discharge planning issues: Plan: This is an 80yo F with a PMH of dementia, anxiety, depression, HTN, CKD III, history of L foot drop with ambulatory dysfunction and other medical problems listed below who presents with confusion and family concerns for patient safety. Patient lives alone, has had increased confusion and worsening depression over past two weeks prompting safety concerns for family regarding patient living alone Currently oriented to person and place, not to time Has recently communicated she has "no reason to live" to niece but does not remember this conversation, denies SI Has chronic ambulatory dysfunction 2/[address] head and CXR without acute abnormality, covid screen negative, UA pending Psych eval for dementia, worsening depression Currently has family nearby, 1x/week office of aging visits and meals on wheels PT/OT consults, appreciate case mgmt evaluation (4) Asthma exacerbation: Plan: Wheezing on exam, poor air movement. Continue home inhalers, Singulair, scheduled duonebs Q4HR, solumedrol 40mg IV BID (5) Hypertension: Plan: Normotensive. Continue home amlodipine, lisinopril, Toprol (6) Anxiety: Plan: Continue zoloft, PRN Ativan (7) Hypothyroidism: Plan: Continue levothyroxine DVT Ppx: SQ heparin Code status: FULL PCP: Ozzy Dispo: Admitted to [facility] tele Patient seen in collaboration with Dr. Mott. Please see addendum. History of Present Illness Chief Complaint: worsening confusion, safety concerns from family, ? SI Primary Care Provider: Maria Luisa Preciado MD This is an 80yo F with a PMH of dementia, anxiety, depression, HTN, CKD III, history of L foot drop with ambulatory dysfunction and other medical problems listed below who presents with confusion and family concerns for patient safety. Patient lives alone. Per discussion with niece, over the past few weeks patient has seemed more confused and unfit to live alone at home. Also seemed more depressed over the phone to family members lately, saying she does not have much to live for now that siblings have . Patient is only oriented to self and place but not to time. Believes it is March of 1982. EMS was called due to care concerns and trailer had medications scattered about and patient seemed confused. Currently has area agency of aging visiting once a week, meals on wheels and family in the area that visits 5x/week. Concern that patient is no longer fit to live alone. Denies any fever, chills, headache, chest pain, shortness of breath, N/V, abdominal pain, dysuria, diarrhea or constipation. Sta tu that she took medications as prescribed this morning. Allergies Allergy/AdvReac Type Severity Reaction Status Date / Time Iodinated Contrast Media Allergy Intermediate HIVES Verified 09/20/21 16:32 iodine Allergy Intermediate DIARRHEA Verified 09/20/21 16:32 dobutamine AdvReac Severe SHORTNESS Verified 09/20/21 16:32 OF BREATH famotidine AdvReac Intermediate Diarrhea Verified 09/20/21 16:32 Home Medications Medication Instructions Recorded Confirmed Type acetaminophen 650 mg 650 mg PO Q8H PRN 08/04/21 09/20/21 History tablet,extended release albuterol sulfate 90 mcg/actuation 2 puff INHALATION Q4H PRN 08/04/21 09/20/21 History aerosol inhaler amlodipine 10 mg tablet 10 mg PO QAM 08/04/21 09/20/21 History aspirin 81 mg chewable tablet 81 mg PO QAM 08/04/21 09/20/21 History atorvastatin 20 mg tablet 20 mg PO QAM 08/04/21 09/20/21 History docusate sodium 100 mg capsule 100 mg PO DAILY 08/04/21 09/20/21 History ferrous sulfate 325 mg (65 mg 325 mg PO QAM 08/04/21 09/20/21 History iron) tablet folic acid 1 mg tablet 1 mg PO QAM 08/04/21 09/20/21 History levothyroxine 25 mcg tablet 25 mcg PO QAM 08/04/21 09/20/21 History lisinopril 40 mg tablet 40 mg PO QAM 08/04/21 09/20/21 History loratadine 10 mg tablet 10 mg PO DAILY PRN 08/04/21 09/20/21 History lorazepam 1 mg tablet 1 mg PO BID PRN 08/04/21 09/20/21 History meloxicam 7.5 mg tablet 7.5 mg PO DAILY PRN 08/04/21 09/20/21 History metoprolol succinate 50 mg 50 mg PO QAM 08/04/21 09/20/21 History tablet,extended release 24 hr montelukast 10 mg tablet 10 mg PO QAM 08/04/21 09/20/21 History omeprazole 20 mg capsule,delayed 20 mg PO QAM 08/04/21 09/20/21 History release polyethylene glycol 3350 17 gram 17 g PO DAILY PRN 08/04/21 09/20/21 History oral powder packet sertraline 100 mg tablet 100 mg PO QAM 08/04/21 09/20/21 History fluticasone 250 mcg-salmeterol 50 1 inh INHALATION BID 08/06/21 09/20/21 History mcg/dose blistr powdr for inhalation (Wixela Inhub) Past Med/Surg History Medical History (Updated 09/20/21 @ 18:44 by Tyesha Perry PA-C) Anxiety Asthma Dementia Depression Discharge planning issues Hypertension Hypothyroidism Neuropathy of left peroneal nerve Pancreatic mass "noted on CT 01/16/15" Surgical History Status post appendectomy Status post cataract extraction Status post partial mastectomy "left breast, benign disease" Family History Other Cancer Social History Smoking Status: Never smoker Hx Alcohol Use: No Hx Substance Use: No Preferred Language: Occitan Communication Ability: Effective Beliefs That Will Affect Care: None marital status: / Current Living Situation: Alone Feels Safe at Home: Yes Assistive Devices: Walker Review of Systems Review of Systems: At least ten systems reviewed and negative except as noted in the HPI. Physical Exam Physical Exam: General Appearance: WD/WN, vitals as above, NAD, sitting up in bed, pleasant Head: normocephalic, atraumatic Eyes: normal inspection, PERRL, conjunctivae normal, anicteric sclerae ENT: external ear and nose normal, oropharynx normal Neck: normal visual inspection, trachea midline, no thyromegaly Respiratory: poor air movement throughout lung gonzalez, scattered expiratory wheezing noted. No accessory muscle use Cardiovascular: regular rate, rhythm, no murmur, normal peripheral pulses, no BLE edema. Vessels: no JVD Chest: normal inspection of chest Abdomen/GI: normal bowel sounds, soft, nontender, no hepatosplenomegaly Extremities/Musculoskeletal: no cyanosis or clubbing, extremities motor strength 5/5 Neurologic: PERRL, EOMI, accommodation nl, no face palsy, no dysarthria, CN's II-XI intact bilaterally and moves all extremities Psychiatric: A+Ox person and place, not to time. Limited insight Skin: no rashes, normal color, warm/dry Results & Data Results & Data ([facility]) Vital Signs (Past 12 Hours) Vital Signs Temp Pulse Pulse Resp BP BP Pulse Ox 09/20/21 16:05 79 18 163/111 H 95 09/20/21 15:05 37.1 C 85 18 154/85 H 95 Laboratory Results Short CBC 09/20/21 09/20/21 09/20/21 Range/Units 15:25 15:25 16:05 WBC 9.84 (4.8-10.8) K/uL RBC 5.18 (4.2-5.4) M/uL Hgb 16.1 H (12.0-16.0) g/dL Hct 48.1 H (37-47) % MCV 92.9 (80-100) fL MCH 31.1 (25-34) pg MCHC 33.5 (32-36) g/dL RDW Std Deviation 47.4 H (36.4-46.3) fL RDW Coeff of Gui 14.0 (11.5-14.5) % Plt Count 254 (130-400) K/uL MPV 10.8 H (7.4-10.4) fL Immature Gran % (Auto) 0.2 % Neut % (Auto) 77.7 % Lymph % (Auto) 14.7 % Roberts % (Auto) 6.9 % Eos % (Auto) 0.3 % Baso % (Auto) 0.2 % Neut # (Auto) 7.64 H (1.4-6.5) K/uL Lymph # (Auto) 1.45 (1.2-3.4) K/uL Roberts # (Auto) 0.68 H (0.11-0.59) K/uL Eos # (Auto) 0.03 (0-0.5) K/uL Baso # (Auto) 0.02 (0-0.2) K/uL Immature Gran # (Auto) 0.02 (0.00-0.02) K/uL Sodium 139 (136-145) mmol/L Potassium 3.7 (3.5-5.1) mmol/L Chloride 106 (98-107) mmol/L Carbon Dioxide 26 (21-32) mmol/L Anion Gap 7.0 (3-11) BUN 24 H (7-18) mg/dl Creatinine 1.01 (0.6-1.2) mg/dl Est Cr Clr Drug Dosing 45.5 ml/min Est GFR ( Amer) 60.9 ml/min Est GFR (Non-Af Amer) 52.5 ml/min BUN/Creatinine Ratio 23.4 H (10-20) Glucose 130 H (70-99) mg/dl Calcium 9.7 (8.5-10.1) mg/dl Total Bilirubin 0.6 (0.2-1) mg/dl AST 18 (15-37) U/L ALT 32 (12-78) Alkaline Phosphatase 102 (45-117) U/L Troponin I < 0.015 (0-0.045) ng/ml Total Protein 8.8 H (6.4-8.2) gm/dl Albumin 3.9 (3.4-5.0) gm/dl Globulin 4.9 H (2.5-4.0) gm/dl Albumin/Globulin Ratio 0.8 L (0.9-2) TSH 2.200 (0.300-4.500) uIu/ml SARS-CoV-2, RNA, NAAT NEGATIVE (NEGATIVE) BMP 09/20/21 15:25 Sodium 139 Potassium 3.7 Chloride 106 Carbon Dioxide 26 BUN 24 H Creatinine 1.01 Glucose 130 H Calcium 9.7 Cardiac Enzymes 09/20/21 Range/Units 15:25 Troponin I < 0.015 (0-0.045) ng/ml Liver Function 09/20/21 Range/Units 15:25 Total Bilirubin 0.6 (0.2-1) mg/dl AST 18 (15-37) U/L ALT 32 (12-78) Alkaline Phosphatase 102 (45-117) U/L Albumin 3.9 (3.4-5.0) gm/dl Diagnostic Findings Chest X-Ray 09/20/21 15:19 XR chest 1V portable HISTORY: weakness COMPARISON: Chest 08/04/2021. FINDINGS: Chronic elevation of the right hemidiaphragm, unchanged. The heart remains mildly enlarged. No new focal lung consolidations to suggest pneumonia. No evidence for pulmonary edema. Calcifications again noted within the aortic knob. No pleural effusions. No pneumothorax. Advanced degenerative changes again noted within the shoulders. IMPRESSION: No change in the cardiomegaly and elevated right hemidiaphragm. Otherwise, no acute process within the chest. ACT 112: Negative or not required by law. Electronically signed by: Joseph Bernal M.D. 09/20/2021 3:[address] 09/20/21 15:[address] CT DOSE: 1257.71 mGy.cm HISTORY: confusion TECHNIQUE: Multiaxial CT images of the head were performed without the use of intravenous contrast. Automated exposure control was utilized for this study. A dose lowering technique was utilized adhering to the principles of ALARA. Comparison: None. Findings: The paranasal sinuses and mastoid air cells are clear. The calvarium and skull base are intact. The ventricles and sulci are within normal limits. There is no mass, hematoma, midline shift, or acute infarct. 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 Extensive patchy white matter hypodensity seen within the brain. This is nonspecific but favors microvascular ischemic change. This is similar to the prior study. Impression: No acute intracranial abnormality. ACT 112: Negative or not required by law. Electronically signed by: Joseph Bernal M.D. 09/20/2021 3:49 PM Supervising Physician Co-Signing Physician Notes Attending addendum: The patient was seen and examined in emergency room She was sent in by the family members with increasing confusion She was noted to be short of breath with wheezing and wanted to have some medications for that Denies any problem with urine and or bowel habit On examination Lying in bed with moderate shortness of breath at rest Hemodynamically stable Chestoccasional wheezing HeartS1-S2, regular Abdomendistended with a huge ventral hernia/lipoma, bowel sound present Extremitiestrace edema bilaterally CNSalert and awake. Generally weak but no focal neuro deficit Her admission labs and imaging studies reviewed Change in mental status with history of dementia Rule out any UTI Has mild asthma exacerbation Agree with assessment and plan as outlined above by ANGIE Miller Dr (1) Dementia Dementia type: unspecified type
[2021-09-20 17:19] LABS: Appearance Urine Turbid (Clear); Bacteria Urine Automated 1+ (Negative); Bilirubin Urine Negative (Negative); Blood Urine Negative (Negative); Color Urine Yellow; Epithelial Cell Urine Auto >30 /lpf (0-5); Glucose Urine UA Negative (Negative); Ketones Urine Negative (Negative); Leukocyte Esterase Urine Negative (Negative); Nitrite Urine Negative (Negative); Protein Urine 1+ (Negative); RBC Urine Automated 0-4 /hpf (0-4); Specific Gravity Urine 1.026 (1.000-1.030); Urobilinogen Urine Negative (Negative); pH Urine 5.5 (4.5-7.5)
[2021-09-20 17:38] LABS: Calcium Oxalate Crystals Urine Present (None Prsent)
[2021-09-20] MEDS ORDERED: ACETAMINOPHEN 325 MG TAB PO PRN (21:32)
[2021-09-20] MEDS ORDERED: ONDANSETRON INJ 2 MG/ML 2 ML VIAL IV PRN (21:32)
[2021-09-20] MEDS ORDERED: ALBUTEROL HFA 8 GM INHALER INH PRN (21:32)
[2021-09-20] MEDS ORDERED: MELOXICAM 7.5 MG TAB PO PRN (21:32)
[2021-09-20] MEDS ORDERED: LORATADINE 10 MG TAB PO PRN (21:32)
[2021-09-20] MEDS ORDERED: POLYETHYLENE (MIRALAX) 17 GM PACK PO PRN (21:32)
[2021-09-20] MEDS ORDERED: LORazepam 1 MG TAB PO PRN (21:46)
[2021-09-20] MEDS: HEPARIN SOD 5,000 UNIT/0.5 ML VIAL SQ SCH (22:41)
[2021-09-20] MEDS: ALBUT/IPRATROP 3MG/0.5MG NEB 3 ML VIAL NEB SCH ×2 (23:35)
[2021-09-21] MEDS: ALBUT/IPRATROP 3MG/0.5MG NEB 3 ML VIAL NEB SCH ×6 (02:04→23:47)
[2021-09-21] MEDS: HEPARIN SOD 5,000 UNIT/0.5 ML VIAL SQ SCH ×3 (06:03→21:54)
--- NOTE | 2021-09-21 06:30 | Electrocardiogram Report ---
Test Reason : Blood Pressure : / mmHG Vent. Rate : 085 BPM Atrial Rate : 085 BPM P-R Int : 118 ms QRS Dur : 100 ms QT Int : 370 ms P-R-T Axes : 042 -53 017 degrees QTc Int : 440 ms Normal sinus rhythm Possible Left atrial enlargement Left axis deviation Incomplete right bundle branch block Left ventricular hypertrophy Abnormal ECG When compared with ECG of 04-AUG-2021 18:51, Premature atrial complexes are no longer Present Confirmed by Shayne Dawson ([id number]) on 09/21/2021 6:30:27 AM Referred By: Confirmed By:Shayne Dawson
[2021-09-21] MEDS: LEVOTHYROXINE SODIUM 25 MCG TABLET PO SCH (06:31)
[2021-09-21] MEDS: lisinopril 40 MG TAB PO SCH (08:01)
[2021-09-21] MEDS: methylPREDNISolone 40 MG in SYRINGE 0 ML IV SCH ×2 (08:01→20:49)
[2021-09-21] MEDS: METOPROLOL SUCC 50MG EXT REL TAB PO SCH (08:01)
[2021-09-21] MEDS: SERTRALINE HCL 100 MG TABLET PO SCH (08:02)
[2021-09-21] MEDS: MONTELUKAST SODIUM 10 MG TABLET PO SCH (08:02)
[2021-09-21] MEDS: PANTOprazole 40 MG TAB PO SCH (08:02)
[2021-09-21] MEDS: amLODIPine BESYLATE 5 MG TAB PO SCH (08:02)
[2021-09-21] MEDS: FOLIC ACID 1 MG TAB PO SCH (08:03)
[2021-09-21] MEDS: FERROUS SULFATE 325 MG TAB PO SCH (08:03)
[2021-09-21] MEDS: ASPIRIN 81 MG CHEW PO SCH (08:03)
[2021-09-21] MEDS: DOCUSATE SODIUM 100 MG CAP PO SCH (08:03)
[2021-09-21] MEDS: ATORVASTATIN 20 MG TAB PO SCH (08:03)
[2021-09-21] MEDS: FLUTICASONE/VILANTEROL 200/25MCG 14 PUFFS/INHALER INH SCH (08:04)
[2021-09-21 08:55] LABS: Hemoglobin 14.9 g/dL (12.0-16.0); Mean Corpuscular Hemoglobin 30.8 pg (25-34); Mean Corpuscular Hgb Conc 33.1 g/dL (32-36); Mean Platelet Volume 11.1 fL (7.4-10.4); Platelet Count 243 K/uL (130-400); RDW Coefficient of Variation 13.9 % (11.5-14.5); RDW Standard Deviation 47.3 fL (36.4-46.3); Red Blood Count 4.84 M/uL (4.2-5.4); White Blood Count 8.59 K/uL (4.8-10.8)
[2021-09-21 09:19] LABS: BUN Creatinine Ratio 29.7 (10-20); Calcium 9.4 mg/dl (8.5-10.1); Creatinine Clr Calc Pharmacy 48.5 ml/min; Est GFR (African American) 67.3 ml/min; Potassium 3.9 mmol/L (3.5-5.1)
[2021-09-21] MEDS ORDERED: MICONAZOLE NITRATE POWDER 43 GM EXT PRN (14:15)
--- NOTE | 2021-09-21 16:26 | Hospitalist Progress Note ---
Date of Service September 21, 2021 Assessment & Plan (1) Dementia: Plan: Has dementia without any acute delirium (2) Depression: Plan: This is an 80yo F with a PMH of dementia, anxiety, depression, HTN, CKD III, history of L foot drop with ambulatory dysfunction and other medical problems listed below who presents with confusion and family concerns for patient safety. Patient lives alone, has had increased confusion and worsening depression over past two weeks prompting safety concerns for family regarding patient living alone Currently oriented to person and place, not to time Has recently communicated she has "no reason to live" to niece but does not remember this conversation, denies SI Has chronic ambulatory dysfunction 2/[address] head and CXR without acute abnormality, covid screen negative, UA pending Psych eval for dementia, worsening depression Currently has family nearby, 1x/week office of aging visits and meals on wheels Clinically much better today No evidence of infection but urine is incubating for pinpoint growth Clinically back to her baseline and wants to be home (3) Discharge planning issues: Plan: Uses a walker at home without any problem PT and OT-recommended home client services manager is on board and likely discharge tomorrow (4) Asthma exacerbation: Plan: Wheezing on exam, poor air movement. Continue home inhalers, Singulair, scheduled duonebs Q4HR, solumedrol 40mg IV BID Has been complaining of shortness of breath with minimal exertion with wheezing She has been on Solu-Medrol 40 mg twice daily and nebulized bronchodilator Condition has improved a lot (5) Hypertension: Plan: Normotensive. Continue home amlodipine, lisinopril, Toprol No issues with blood pressure (6) Anxiety: Plan: Continue zoloft, PRN Ativan (7) Hypothyroidism: Plan: Continue levothyroxine DVT Ppx: SQ heparin Code status: FULL PCP: Ozzy Dispo: [facility] Admission and Anticipated Discharge Date Admission Date: September 20, 2021 Subjective 09/21/2021 The patient was seen and examined in medical telemetry unit She has been feeling much better and denies any respiratory symptoms She denies any urinary symptoms and wants to go home Review of Systems Review of Systems: All systems reviewed and are unremarkable except as noted below Physical Exam Physical Exam: Lying in bed comfortably Constitutional: well developed, well nourished and + obese; not ill appearing Eyes: PERRL, conjunctivae normal, anicteric sclerae ENMT: external ear and nose normal, oropharynx normal Neck: trachea midline, no thyromegaly Respiratory: no respiratory distress Auscultation: + diminished lung sounds and + crackles (Minimal crackles at the bases) Cardiovascular: Rate/Rhythm: regular rate and regular rhythm; not tachycardic Heart Sounds: normal S1 and normal S2; no murmur Extremities: + edema (Trace edema bilaterally) Gastrointestinal (Abdomen): Inspection/Auscultation: normal bowel sounds; abdomen not distended Percussion/Palpation: abdomen soft; abdomen nontender Musculoskeletal: No acute arthritis in the knee joint Neurologic: Alert, awake and oriented x3. No focal sensory or motor deficit appreciated Results & Data Results & Data ([facility]) Vital Signs (Past 12 Hours) Vital Signs Temp Pulse Pulse Pulse Resp BP Pulse Ox 09/21/21 15:41 37.1 C 79 16 110/69 93 09/21/21 15:18 82 18 94 09/21/21 14:24 85 09/21/21 11:30 81 20 95 09/21/21 11:00 37.1 C 90 18 130/80 96 09/21/21 07:30 37.0 C 72 18 156/81 H 95 09/21/21 07:25 37 C 77 14 148/92 H 95 09/21/21 07:00 76 09/21/21 06:57 80 20 94 Laboratory Results Short CBC 09/21/21 Range/Units 08:22 WBC 8.59 (4.8-10.8) K/uL Hgb 14.9 (12.0-16.0) g/dL Hct 45.0 (37-47) % Plt Count 243 (130-400) K/uL BMP 09/21/21 08:22 Sodium 139 Potassium 3.9 Chloride 107 Carbon Dioxide 24 BUN 28 H Creatinine 0.93 Glucose 140 H Calcium 9.4 Urine 09/20/21 Range/Units 17:00 Urine Color Yellow Urine Appearance Turbid A (Clear) Urine pH 5.5 (4.5-7.5) Ur Specific [place] 1.026 (1.000-1.030) Urine Protein 1+ H (Negative) Urine Glucose (UA) Negative (Negative) Medications Administered Current Inpatient Medications Acetaminophen (Acetaminophen 325 Mg Tab) 650 mg PO Q4H PRN PRN Reason: Pain or Fever Stop: 10/20/21 21:31 Albuterol (Albuterol Hfa 8 Gm Inhaler) 2 puffs INH Q4H PRN PRN Reason: Shortness Of Breath Stop: 10/20/21 21:31 Albuterol (Albut/Ipratrop 3mg/0.5mg Neb 3 Ml Vial) 3 ml NEB Q4R [facility]; Protocol Stop: 10/20/21 21:31 Last Admin: 09/21/21 15:18 Dose: 3 ml Documented by: Amlodipine Besylate (Amlodipine Besylate 5 Mg Tab) [facility] Stop: 10/21/21 08:59 Last Admin: 09/21/21 08:02 Dose: 10 mg Documented by: Aspirin (Aspirin 81 Mg Chew) 81 [facility] Stop: 10/21/21 08:59 Last Admin: 09/21/21 08:03 Dose: 81 mg Documented by: Atorvastatin Calcium (Atorvastatin 20 Mg Tab) 20 mg PO [facility] Stop: 10/21/21 08:59 Last Admin: 09/21/21 08:03 Dose: 20 mg Documented by: Docusate Sodium (Docusate Sodium 100 Mg Cap) 100 mg PO DAILY [facility] Stop: 10/21/21 08:59 Last Admin: 09/21/21 08:03 Dose: 100 mg Documented by: Ferrous Sulfate (Ferrous Sulfate 325 Mg Tab) 325 [facility] Stop: 10/21/21 08:59 Last Admin: 09/21/21 08:03 Dose: 325 mg Documented by: Fluticasone/Vilanterol (Fluticasone/Vilanterol 200/25mcg 14 Puffs/Inhaler) 1 puffs INH DAILY [facility]; Protocol Stop: 10/21/21 08:59 Last Admin: 09/21/21 08:04 Dose: 1 puffs Documented by: Folic Acid (Folic Acid 1 Mg Tab) 1 mg PO QAM [facility] Stop: 10/21/21 08:59 Last Admin: 09/21/21 08:03 Dose: 1 mg Documented by: Heparin Sodium (Porcine) (Heparin Sod 5,000 Unit/0.5 Ml Vial) 5,000 units SQ Q8 [facility] Stop: 10/20/21 21:59 Last Admin: 09/21/21 14:12 Dose: 5,000 units Documented by: Methylprednisolone 40 mg/ (Syringe) 0.64 mls @ 1.5 mls/min IV Q12H [facility] Stop: 10/21/21 07:59 Last Admin: 09/21/21 08:01 Dose: 1.5 mls/min Documented by: Levothyroxine Sodium (Levothyroxine Sodium 25 Mcg Tablet) [facility] Stop: 10/21/21 06:29 Last Admin: 09/21/21 06:31 Dose: 25 mcg Documented by: Lisinopril (Lisinopril 40 Mg Tab) 40 mg PO [facility] Stop: 10/21/21 08:59 Last Admin: 09/21/21 08:01 Dose: 40 mg Documented by: Loratadine (Loratadine 10 Mg Tab) 10 mg PO DAILY PRN PRN Reason: Allergy Symptoms Stop: 10/20/21 21:31 Lorazepam (Lorazepam 1 Mg Tab) 1 mg PO BID PRN PRN Reason: Anxiety Stop: 10/20/21 21:45 Meloxicam (Meloxicam 7.5 Mg Tab) 7.5 mg PO DAILY PRN PRN Reason: Pain Stop: 10/20/21 21:31 Metoprolol Succinate (Metoprolol Succ 50mg Ext Rel Tab) 50 mg PO [facility] Stop: 10/21/21 08:59 Last Admin: 09/21/21 08:01 Dose: 50 mg Documented by: Miconazole Nitrate (Miconazole Nitrate Powder 43 Gm) 1 appln EXT PRN PRN PRN Reason: Affected Skin Folds Stop: 10/21/21 14:14 Last Admin: 09/21/21 15:55 Dose: 1 appln Documented by: Montelukast Sodium (Montelukast Sodium 10 Mg Tablet) 10 mg PO [facility] Stop: 10/21/21 08:59 Last Admin: 09/21/21 08:02 Dose: 10 mg Documented by: Ondansetron HCl (Ondansetron Inj 2 Mg/Ml 2 Ml Vial) 4 mg IV Q6H PRN PRN Reason: Nausea Stop: 10/20/21 21:31 Pantoprazole Sodium (Pantoprazole 40 Mg Tab) 40 mg PO [facility]; Protocol Stop: 10/21/21 08:59 Last Admin: 09/21/21 08:02 Dose: 40 mg Documented by: Polyethylene Glycol (Polyethylene (Miralax) 17 Gm Pack) 17 gm PO DAILY PRN PRN Reason: Constipation Stop: 10/20/21 21:31 Sertraline HCl (Sertraline Hcl 100 Mg Tablet) [facility] Stop: 10/21/21 08:59 Last Admin: 09/21/21 08:02 Dose: 100 mg Documented by: (1) Dementia Dementia type: unspecified type
[2021-09-22] MEDS: ALBUT/IPRATROP 3MG/0.5MG NEB 3 ML VIAL NEB SCH ×2 (04:47→07:14)
[2021-09-22] MEDS: HEPARIN SOD 5,000 UNIT/0.5 ML VIAL SQ SCH ×3 (05:52→21:42)
[2021-09-22] MEDS: LEVOTHYROXINE SODIUM 25 MCG TABLET PO SCH (05:52)
[2021-09-22] MEDS: methylPREDNISolone 40 MG in SYRINGE 0 ML IV SCH ×2 (09:25→21:41)
[2021-09-22] MEDS: lisinopril 40 MG TAB PO SCH (09:27)
[2021-09-22] MEDS: FOLIC ACID 1 MG TAB PO SCH (09:27)
[2021-09-22] MEDS ORDERED: ALBUT/IPRATROP 3MG/0.5MG NEB 3 ML VIAL NEB PRN (09:27)
[2021-09-22] MEDS: FERROUS SULFATE 325 MG TAB PO SCH (09:27)
[2021-09-22] MEDS: MONTELUKAST SODIUM 10 MG TABLET PO SCH (09:28)
[2021-09-22] MEDS: amLODIPine BESYLATE 5 MG TAB PO SCH (09:29)
[2021-09-22] MEDS: METOPROLOL SUCC 50MG EXT REL TAB PO SCH (09:30)
[2021-09-22] MEDS: SERTRALINE HCL 100 MG TABLET PO SCH (09:31)
[2021-09-22] MEDS: ATORVASTATIN 20 MG TAB PO SCH (09:31)
[2021-09-22] MEDS: ASPIRIN 81 MG CHEW PO SCH (09:31)
[2021-09-22] MEDS: FLUTICASONE/VILANTEROL 200/25MCG 14 PUFFS/INHALER INH SCH (09:32)
[2021-09-22] MEDS: PANTOprazole 40 MG TAB PO SCH (09:32)
[2021-09-22] MEDS: DOCUSATE SODIUM 100 MG CAP PO SCH (09:34)
--- NOTE | 2021-09-22 14:07 | Hospitalist Progress Note ---
Date of Service September 22, 2021 Assessment & Plan (1) Dementia: Plan: Has dementia without any acute delirium (2) Depression: Plan: This is an 80yo F with a PMH of dementia, anxiety, depression, HTN, CKD III, history of L foot drop with ambulatory dysfunction and other medical problems listed below who presents with confusion and family concerns for patient safety. Patient lives alone, has had increased confusion and worsening depression over past two weeks prompting safety concerns for family regarding patient living alone Currently oriented to person and place, not to time Has recently communicated she has "no reason to live" to niece but does not remember this conversation, denies SI Has chronic ambulatory dysfunction 2/[address] head and CXR without acute abnormality, covid screen negative, UA pending Psych eval for dementia, worsening depression Currently has family nearby, 1x/week office of aging visits and meals on wheels Clinically much better today No evidence of infection but urine is incubating for pinpoint growth Clinically back to her baseline and wants to be home She is extremely happy to know that she will be going home tomorrow (3) Discharge planning issues: Plan: Uses a walker at home without any problem PT and OT-recommended home business improvement manager is on board and likely discharge tomorrow (4) Asthma exacerbation: Plan: Wheezing on exam, poor air movement. Continue home inhalers, Singulair, scheduled duonebs Q4HR, solumedrol 40mg IV BID Has been complaining of shortness of breath with minimal exertion with wheezing She has been on Solu-Medrol 40 mg twice daily and nebulized bronchodilator Condition has improved a lot Still has minimal wheezing but no shortness of breath at rest and does not require any oxygen to maintain saturation Will continue IV Solu-Medrol today and change to oral prednisone from tomorrow Two-step O2 saturation will be done tomorrow before discharge (5) Hypertension: Plan: Normotensive. Continue home amlodipine, lisinopril, Toprol No issues with blood pressure (6) Anxiety: Plan: Continue zoloft, PRN Ativan (7) Hypothyroidism: Plan: Continue levothyroxine DVT Ppx: SQ heparin Code status: FULL PCP: Ozzy Dispo: Admitted to [facility] Admission and Anticipated Discharge Date Admission Date: September 20, 2021 Subjective 09/21/2021 The patient was seen and examined in medical telemetry unit She has been feeling much better and denies any respiratory symptoms She denies any urinary symptoms and wants to go home 09/22/2021 The patient was seen and examined in medical telemetry unit She has been feeling much better and wants to go home She does have minimal wheezing but denies any shortness of breath She was extremely happy to know that she will be discharged home tomorrow after lunch Review of Systems Review of Systems: All systems reviewed and are unremarkable except as noted below Physical Exam Physical Exam: Lying in bed comfortably Constitutional: well developed, well nourished and + obese; not ill appearing Eyes: PERRL, conjunctivae normal, anicteric sclerae ENMT: external ear and nose normal, oropharynx normal Neck: trachea midline, no thyromegaly Respiratory: no respiratory distress Auscultation: + diminished lung sounds and + wheezes (Minimal wheezing anteriorly); no crackles (Minimal crackles at the bases) Cardiovascular: Rate/Rhythm: regular rate and regular rhythm; not tachycardic Heart Sounds: normal S1 and normal S2; no murmur Extremities: + edema (Trace edema bilaterally) Gastrointestinal (Abdomen): Inspection/Auscultation: normal bowel sounds; abdomen not distended Percussion/Palpation: abdomen soft; abdomen nontender Musculoskeletal: No acute arthritis in any joint Neurologic: Alert, awake and oriented x3. Generally weak but no focal neurodeficit Results & Data Results & Data ([facility]) Vital Signs (Past 12 Hours) Vital Signs Temp Pulse Resp BP Pulse Ox 09/22/21 11:27 36.8 C 73 18 154/81 H 94 09/22/21 07:52 37.0 C 88 20 156/80 H 95 09/22/21 07:14 79 18 96 09/22/21 04:00 36.9 C 65 18 120/78 93 Medications Administered Current Inpatient Medications Acetaminophen (Acetaminophen 325 Mg Tab) 650 mg PO Q4H PRN PRN Reason: Pain or Fever Stop: 10/20/21 21:31 Albuterol (Albuterol Hfa 8 Gm Inhaler) 2 puffs INH Q4H PRN PRN Reason: Shortness Of Breath Stop: 10/20/21 21:31 Albuterol (Albut/Ipratrop 3mg/0.5mg Neb 3 Ml Vial) 3 ml NEB Q4R PRN; Protocol PRN Reason: Shortness Of Breath Or Wheezing Stop: 10/20/21 21:31 Amlodipine Besylate (Amlodipine Besylate 5 Mg Tab) [facility] [place] [facility] [place]: 10/21/21 08:59 Last Admin: 09/22/21 09:29 Dose: 10 mg Documented by: Aspirin (Aspirin 81 Mg Chew) 81 mg PO QAM [facility] Stop: 10/21/21 08:59 Last Admin: 09/22/21 09:31 Dose: 81 mg Documented by: Atorvastatin Calcium (Atorvastatin 20 Mg Tab) [facility] [place]: 10/21/21 08:59 Last Admin: 09/22/21 09:31 Dose: 20 mg Documented by: Docusate Sodium (Docusate Sodium 100 Mg Cap) 100 mg PO DAILY [facility] Stop: 10/21/21 08:59 Last Admin: 09/22/21 09:34 Dose: 100 mg Documented by: Ferrous Sulfate (Ferrous Sulfate 325 Mg Tab) 325 mg PO [facility] Stop: 10/21/21 08:59 Last Admin: 09/22/21 09:27 Dose: 325 mg Documented by: Fluticasone/Vilanterol (Fluticasone/Vilanterol 200/25mcg 14 Puffs/Inhaler) 1 puffs INH DAILY [facility]; Protocol Stop: 10/21/21 08:59 Last Admin: 09/22/21 09:32 Dose: 1 puffs Documented by: Folic Acid (Folic Acid 1 Mg Tab) 1 mg PO QAM [facility] Stop: 10/21/21 08:59 Last Admin: 09/22/21 09:27 Dose: 1 mg Documented by: Heparin Sodium (Porcine) (Heparin Sod 5,000 Unit/0.5 Ml Vial) 5,000 units SQ Q8 [facility] Stop: 10/20/21 21:59 Last Admin: 09/22/21 05:52 Dose: 5,000 units Documented by: Methylprednisolone 40 mg/ (Syringe) 0.64 mls @ 1.5 mls/min IV Q12H [facility] Stop: 10/21/21 07:59 Last Admin: 09/22/21 09:25 Dose: 1.5 mls/min Documented by: Levothyroxine Sodium (Levothyroxine Sodium 25 Mcg Tablet) [facility]: 10/21/21 06:29 Last Admin: 09/22/21 05:52 Dose: 25 mcg Documented by: Lisinopril (Lisinopril 40 Mg Tab) 40 mg PO [facility] Stop: 10/21/21 08:59 Last Admin: 09/22/21 09:27 Dose: 40 mg Documented by: Loratadine (Loratadine 10 Mg Tab) 10 mg PO DAILY PRN PRN Reason: Allergy Symptoms Stop: 10/20/21 21:31 Lorazepam (Lorazepam 1 Mg Tab) 1 mg PO BID PRN PRN Reason: Anxiety Stop: 10/20/21 21:45 Meloxicam (Meloxicam 7.5 Mg Tab) 7.5 mg PO DAILY PRN PRN Reason: Pain Stop: 10/20/21 21:31 Metoprolol Succinate (Metoprolol Succ 50mg Ext Rel Tab) 50 mg PO [facility] Stop: 10/21/21 08:59 Last Admin: 09/22/21 09:30 Dose: 50 mg Documented by: Miconazole Nitrate (Miconazole Nitrate Powder 43 Gm) 1 appln EXT PRN PRN PRN Reason: Affected Skin Folds Stop: 10/21/21 14:14 Last Admin: 09/21/21 15:55 Dose: 1 appln Documented by: Montelukast Sodium (Montelukast Sodium 10 Mg Tablet) 10 mg PO [facility] Stop: 10/21/21 08:59 Last Admin: 09/22/21 09:28 Dose: 10 mg Documented by: Ondansetron HCl (Ondansetron Inj 2 Mg/Ml 2 Ml Vial) 4 mg IV Q6H PRN PRN Reason: Nausea Stop: 10/20/21 21:31 Pantoprazole Sodium (Pantoprazole 40 Mg Tab) 40 mg PO [facility]; Protocol Stop: 10/21/21 08:59 Last Admin: 09/22/21 09:32 Dose: 40 mg Documented by: Polyethylene Glycol (Polyethylene (Miralax) 17 Gm Pack) 17 gm PO DAILY PRN PRN Reason: Constipation Stop: 10/20/21 21:31 Sertraline HCl (Sertraline Hcl 100 Mg Tablet) 100 mg PO [facility] Stop: 10/21/21 08:59 Last Admin: 09/22/21 09:31 Dose: 100 mg Documented by: (1) Dementia Dementia type: unspecified type
[2021-09-23] MEDS: LEVOTHYROXINE SODIUM 25 MCG TABLET PO SCH (05:59)
[2021-09-23] MEDS: HEPARIN SOD 5,000 UNIT/0.5 ML VIAL SQ SCH (05:59)
[2021-09-23] MEDS: amLODIPine BESYLATE 5 MG TAB PO SCH (08:38)
[2021-09-23] MEDS: FOLIC ACID 1 MG TAB PO SCH (08:39)
[2021-09-23] MEDS: SERTRALINE HCL 100 MG TABLET PO SCH (08:39)
[2021-09-23] MEDS: FERROUS SULFATE 325 MG TAB PO SCH (08:39)
[2021-09-23] MEDS: DOCUSATE SODIUM 100 MG CAP PO SCH (08:39)
[2021-09-23] MEDS: METOPROLOL SUCC 50MG EXT REL TAB PO SCH (08:39)
[2021-09-23] MEDS: PANTOprazole 40 MG TAB PO SCH (08:39)
[2021-09-23] MEDS: lisinopril 40 MG TAB PO SCH (08:39)
[2021-09-23] MEDS: ASPIRIN 81 MG CHEW PO SCH (08:39)
[2021-09-23] MEDS: ATORVASTATIN 20 MG TAB PO SCH (08:39)
[2021-09-23] MEDS: MONTELUKAST SODIUM 10 MG TABLET PO SCH (08:39)
[2021-09-23] MEDS: methylPREDNISolone 40 MG in SYRINGE 0 ML IV SCH (08:39)
[2021-09-23] MEDS: FLUTICASONE/VILANTEROL 200/25MCG 14 PUFFS/INHALER INH SCH (08:40)
--- NOTE | 2021-09-23 13:05 | Hospitalist Progress Note ---
Date of Service September 23, 2021 Assessment & Plan (1) Dementia: Plan: Has dementia without any acute delirium (2) Depression: Plan: Patient is an 80 yr female with H/O Dementia, anxiety, depression, HTN, CKD III, history of L foot drop with ambulatory dysfunction and other medical problems listed below who presents with confusion and family concerns for patient safety. Patient lives alone, has had increased confusion and worsening depression over past two weeks prompting safety concerns for family regarding patient living alone Chronic ambulatory dysfunction 2/[address] head and CXR without acute abnormality Covid screen negative Evaluated by PT/OT : recommends Home Health Patient refuses any needs and prefers to be discharged home (3) Discharge planning issues: Plan: Uses a walker at home without any problem PT and OT-recommended home health assistant produce manager on board (4) Asthma exacerbation: Plan: CXR:No change in the cardiomegaly and elevated right hemidiaphragm. Otherwise, no acute process within the chest. Received IV Solumedrol>>> transition to p.o. prednisone taper course upon discharge Saturating well on room air 2 step: Did not qualify for oxygen (5) Hypertension: Plan: Normotensive Continue amlodipine, lisinopril, Toprol (6) Anxiety: Plan: Continue zoloft, PRN Ativan (7) Hypothyroidism: Plan: Continue levothyroxine DVT Px: SQ heparin Code status: FULL Code Admission and Anticipated Discharge Date Admission Date: September 20, 2021 Subjective Patient is seen and examined at bedside States feeling much better today Offers no complaints Eager to get discharged Denies any chest pain, shortness of breath, dizziness, nausea, abdominal pain Also denies any significant cough Had 2 step earlier today Review of Systems Review of Systems: All systems reviewed & are unremarkable except as noted in Subjective Physical Exam Physical Exam: Physical Exam: Vitals signs as noted above General Appearance:Obese, no apparent distress Head: normocephalic, Atraumatic Eyes: normal inspection, EOMI Neck: supple, Trachea midline Respiratory/Chest: Decreased breath sounds, scant wheezes, No accessory muscle use Cardiovascular: S1, S2, No murmur Abdomen/GI:Soft, Non tender, Bowel sounds present Extremities/Musculoskeletal:normal inspection, Trace edema Neurologic/Psych:AAOX3, grossly no focal neurological deficits Skin: normal color, warm Results & Data Results & Data ([facility]) Vital Signs (Past 12 Hours) Vital Signs Temp Pulse Pulse Pulse Pulse Pulse Pulse 09/23/21 10:52 37.0 C 94 H 09/23/21 10:10 116 H 121 H 96 H 09/23/21 08:13 78 09/23/21 07:30 36.9 C 75 09/23/21 03:12 36.7 C 72 Resp Resp Resp Resp BP Pulse Ox Pulse Ox 09/23/21 10:52 17 120/70 94 09/23/21 10:10 24 20 18 93 09/23/21 08:13 09/23/21 07:30 16 154/76 H 96 09/23/21 03:12 18 153/65 H 95 Pulse Ox Pulse Ox 09/23/21 10:52 09/23/21 10:10 94 94 09/23/21 08:13 09/23/21 07:30 09/23/21 03:12 (1) Dementia Dementia type: unspecified type
--- NOTE | 2021-09-23 13:27 | Discharge Summary ---
Date of Service September 23, 2021 Admission HPI Per Admitting Provider This is an 80yo F with a PMH of dementia, anxiety, depression, HTN, CKD III, history of L foot drop with ambulatory dysfunction and other medical problems listed below who presents with confusion and family concerns for patient safety. Patient lives alone. Per discussion with niece, over the past few weeks patient has seemed more confused and unfit to live alone at home. Also seemed more depressed over the phone to family members lately, saying she does not have much to live for now that siblings have . Patient is only oriented to self and place but not to time. Believes it is March of 1982. EMS was called due to care concerns and trailer had medications scattered about and patient seemed confused. Currently has area agency of aging visiting once a week, meals on wheels and family in the area that visits 5x/week. Concern that patient is no longer fit to live alone. Denies any fever, chills, headache, chest pain, shortness of breath, N/V, abdominal pain, dysuria, diarrhea or constipation. States that she took medications as prescribed this morning. Admission Exam Per Admitting Provider Physical Exam A Physical Exam: General Appearance:WD/WN, vitals as above, NAD, sitting up in bed, pleasant Head: normocephalic, atraumatic Eyes:normal inspection, PERRL, conjunctivae normal, anicteric sclerae ENT: external ear and nose normal, oropharynx normal Neck: normal visual inspection, trachea midline, no thyromegaly Respiratory:poor air movement throughout lung gonzalez, scattered expiratory wheezing noted. No accessory muscle use Cardiovascular: regular rate, rhythm, no murmur, normal peripheral pulses, no BLE edema. Vessels: no JVD Chest: normal inspection of chest Abdomen/GI: normal bowel sounds, soft, nontender, no hepatosplenomegaly Extremities/Musculoskeletal: no cyanosis or clubbing, extremities motor strength 5/5 Neurologic: PERRL, EOMI, accommodation nl, no face palsy, no dysarthria, CN's II-XI intact bilaterally and moves all extremities Psychiatric:A+Ox person and place, not to time. Limited insight Skin: no rashes, normal color, warm/dry Principal Diagnosis Asthma exacerbation Discharge Data Allergies Allergy/AdvReac Type Severity Reaction Status Date / Time Iodinated Contrast Media Allergy Intermediate HIVES Verified 09/20/21 16:32 iodine Allergy Intermediate DIARRHEA Verified 09/20/21 16:32 dobutamine AdvReac Severe SHORTNESS Verified 09/20/21 16:32 OF BREATH famotidine AdvReac Intermediate Diarrhea Verified 09/20/21 16:32 Consultations 09/20/21 16:58 ED Decision to Admit Stat Ordered Studies 09/20/21 15:19 CT head/brain wo con Stat Hospital Course (1) Dementia: Has dementia without any acute delirium (2) Depression: Patient is an 80 yr female with H/O Dementia, anxiety, depression, HTN, CKD III, history of L foot drop with ambulatory dysfunction and other medical problems listed below who presents with confusion and family concerns for patient safety. Patient lives alone, has had increased confusion and worsening depression over past two weeks prompting safety concerns for family regarding patient living alone Chronic ambulatory dysfunction 2/[address] head and CXR without acute abnormality Covid screen negative Evaluated by PT/OT : recommends Home Health Patient refuses any needs and prefers to be discharged home (3) Discharge planning issues: Uses a walker at home without any problem PT and OT-recommended home health international trade manager on board (4) Asthma exacerbation: CXR:No change in the cardiomegaly and elevated right hemidiaphragm. Otherwise, no acute process within the chest. Received IV Solumedrol>>> transition to p.o. prednisone taper course upon dis charge Saturating well on room air 2 step: Did not qualify for oxygen (5) Hypertension: Normotensive Continue amlodipine, lisinopril, Toprol (6) Anxiety: Continue zoloft, PRN Ativan (7) Hypothyroidism: Continue levothyroxine DVT Px: SQ heparin Code status: FULL Code Total Time Total Time Spent Total Time Spent (In Minutes): 39 minutes Discharge Plan Discharge Items Patient Disposition: Home - Home Health Services Reason For Visit: WORSENING CONFUSION, SAFETY CONCERNS Discharge Diagnosis: Asthma exacerbation Activity: Per Instructions section Exercise/Sports: Gradually increase as tolerated Non-emergency contact: Primary Care Provider Call non-emergency contact if: you have any medication questions, your symptoms worsen, your pain is concerning for you and you have a fever Follow-up/Referrals: [facility] [Other] (Date & Time 09/24/2021 8:30 AM Provider Mary Valencia RN Department [facility], [facility] ) Maria Luisa Preciado MD [Primary Care Provider] - (Date & Time 09/28/2021 3:00 PM Provider Maria Luisa Preciado MD Department Family Medicine [facility] ) Diet: Heart Healthy Diet Texture: Easy to Chew Addtl Attending Provider Instructions: Follow-up with your primary care physician on 09/28/2021 3:00 PM Complete the prednisone tapering dose as prescribed Start taking prednisone 30 mg daily for 1 day then take 20 mg daily for 1 day then 10 mg daily for 1 day and STOP. Seek immediate medical attention if your symptoms reoccur or worsen Please take all medications as instructed on discharge list below. Please call if you have any questions or problems. You can reach a [facility] hospitalist on duty at [facility] 24 hours a day by calling [phone] Pending Studies at Discharge: No Stand-Alone Forms: My [facility] [employer], Smoking Cessation Medications and DC Order Prescriptions: New prednisone 10 mg tablet 10 mg PO UD Qty: 6 RF: 0 Continued atorvastatin 20 mg tablet 20 mg PO QAM RF: 0 polyethylene glycol 3350 17 gram Powder In Packet 17 g PO DAILY PRN (Reason: Constipation) RF: 0 metoprolol succinate 50 mg Tablet Extended Release 24 Hr 50 mg PO QAM RF: 0 sertraline 100 mg Tablet 100 mg PO QAM RF: 0 levothyroxine 25 mcg Tablet 25 mcg PO QAM RF: 0 acetaminophen 650 mg Tablet Extended Release 650 mg PO Q8H PRN (Reason: Pain) RF: 0 meloxicam 7.5 mg Tablet 7.5 mg PO DAILY PRN (Reason: Pain) RF: 0 amlodipine 10 mg tablet 10 mg PO QAM RF: 0 ferrous sulfate 325 mg (65 mg iron) tablet 325 mg PO QAM RF: 0 docusate sodium 100 mg Capsule 100 mg PO DAILY RF: 0 omeprazole 20 mg Capsule,Delayed Release(Dr/Ec) 20 mg PO QAM RF: 0 aspirin 81 mg Tablet,Chewable 81 mg PO QAM RF: 0 folic acid 1 mg Tablet 1 mg PO QAM RF: 0 montelukast 10 mg Tablet 10 mg PO QAM RF: 0 lorazepam 1 mg Tablet 1 mg PO BID PRN (Reason: Anxiety) RF: 0 albuterol sulfate 90 mcg/actuation Hfa Aerosol Inhaler 2 puff INHALATION Q4H PRN (Reason: Shortness Of Breath) RF: 0 lisinopril 40 mg Tablet 40 mg PO QAM RF: 0 loratadine 10 mg Tablet 10 mg PO DAILY PRN (Reason: Allergy Symptoms) RF: 0 fluticasone propion-salmeterol [Wixela Inhub] 250-50 mcg/dose blister with device 1 inh INHALATION BID RF: 0 Discharge Orders: Discharge Order (Routine); Ordered 09/23/21 Ordered By: Akil Jimenez Admission Data Admit Date/Time: 09/20/21 17:20 Attending Provider: Akil Jimenez Admit Provider: Abraham Mott Primary Care Provider: Maria Luisa Preciado Other Providers: Abraham Mott ; Sander Combs [facility]
== END 2021-09-23 15:00 | disposition home health service (06) | DRG 884 ==
LOC: ED 15:06 → EDINP 17:20 → SUATTDRO 17:20 → 2N 21:08